=== PATIENT | female | born 1940 | race Caucasian/White ===

== ENCOUNTER 2016-12-26 17:50 | Outpatient (CLI) | payer MEDICARE | END 2016-12-26 17:51 | disposition home or self-care (01) | DX: I82.501 Chronic embolism and thrombosis of unspecified deep veins of right lower extremity (principal); L90.5 Scar conditions and fibrosis of skin ==

== ENCOUNTER 2017-03-07 14:17 | Emergency (ER) | payer MEDICARE ==
[2017-03-07] MEDS ORDERED: ONDANSETRON 4 MG/2 ML VIAL IVP STA (14:44)
[2017-03-07] MEDS ORDERED: HYDROmorphone 1 MG/ML SYRINGE IVP STA (14:44)
[2017-03-07] MEDS ORDERED: SODIUM CHLORIDE 0.9% 1,000 ML IV ONE ×3 (14:44→17:52)
--- NOTE | 2017-03-07 15:09 | ED Physician Documentation ---
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 HEENT: Other Psych: None Musculoskeletal: None Derm: None - Past Surgical History Past Surgical History: Yes General: Cholecystectomy, Colonoscopy - Present Medications Home Medications: Ambulatory Orders Medication Instructions Recorded Confirmed Hydrocodone/Acetaminophen [[place] 1 each PO Q6H PRN #20 tablet 11/20/15 03/07/17 5-325 Tablet] Ondansetron HCl [Zofran] 4 mg PO Q8H PRN 05/29/16 03/07/17 Aspirin [Aspirin EC] 81 mg PO DAILY 06/06/16 03/07/17 Calcium Carbonate 600 mg PO DAILY 06/06/16 03/07/17 Cholecalciferol (Vitamin D3) 1,000 units PO DAILY 06/06/16 03/07/17 [Vitamin D3] Multivitamin [Multiple Vitamins] 1 tab PO DAILY 06/06/16 03/07/17 Warfarin Sodium 4 mg PO DAILY 03/07/17 03/07/17 - Allergies Allergies/Adverse Reactions: Allergies Allergy/AdvReac Type Severity Reaction Status Date / Time No Known Drug Allergies Allergy Verified 06/05/16 04:07 - Social History Does the pt smoke?: No Smoking Status: Never smoker Does the pt drink ETOH?: No Does the pt have substance abuse?: No - Immunizations Immunizations are current?: No Immunizations: TDAP >10years/unknown - POLST Patient has POLST: No POLST Status: Full Code PD ED PE NORMAL - Vitals Vital signs reviewed: Yes - General General: Other (groaning in pain) - Neck Neck: Supple, no meningeal sign - Cardiac Cardiac: RRR - Respiratory Respiratory: No respiratory distress, Clear bilaterally - Abdomen Abdomen: Other (pt wrsitihing and groaning in pain but minimally TTP periumbilical and mid lower abd, no pulsatile mass , no hernia appreciated) - Derm Derm: Normal color - Extremities Extremities: No deformity - Neuro Neuro: Alert and oriented X 3 Results - Vitals Vitals: Vital Signs - 24 hr 03/07/17 03/07/17 03/07/17 14:23 17:15 19:26 Temperature 35.8 C L Heart Rate 99 74 72 Respiratory 22 20 18 Rate Blood Pressure 108/55 L 130/49 L 129/51 L O2 Saturation 99 97 96 Oxygen O2 Source Room air - Labs Labs: Laboratory Tests 03/07/17 03/07/17 03/07/17 15:18 15:18 15:21 WBC 16.4 H RBC 5.13 Hgb 13.5 Hct 41.6 MCV 81.0 MCH 26.3 L MCHC 32.5 RDW 15.1 H Plt Count 398 MPV 7.8 L Neut # 13.3 H Lymph # 1.7 [place] # 1.2 H Eos # 0.1 Baso # 0.1 Absolute Nucleated RBC 0.00 Nucleated RBCs 0.0 Whole Blood INR 3.0 H Sodium 139 Potassium 4.1 Chloride 106 Carbon Dioxide 22 Anion Gap 11.0 BUN 23 H Creatinine 1.0 Estimated GFR (MDRD) 54 L Glucose 123 H Calcium 9.8 Total Bilirubin 0.6 AST 30 ALT 25 Alkaline Phosphatase 98 Total Protein 7.6 Albumin 4.1 Globulin 3.5 Albumin/Globulin Ratio 1.2 Lipase 39 Urine Color Urine Clarity Urine pH Ur Specific [place] Urine Protein Urine Glucose (UA) Urine Ketones Urine Occult Blood Urine Nitrite Urine Bilirubin Urine Urobilinogen Ur Leukocyte Esterase Urine RBC Urine WBC Urine WBC Clumps Ur Squamous Epith Cells Urine Bacteria Ur Microscopic Review Urine Culture Comments 03/07/17 16:00 WBC RBC Hgb Hct MCV MCH MCHC RDW Plt Count MPV Neut # Lymph # [place] # Eos # Baso # Absolute Nucleated RBC Nucleated RBCs Whole Blood INR Sodium Potassium Chloride Carbon Dioxide Anion Gap BUN Creatinine Estimated GFR (MDRD) Glucose Calcium Total Bilirubin AST ALT Alkaline Phosphatase Total Protein Albumin Globulin Albumin/Globulin Ratio Lipase Urine Color YELLOW Urine Clarity HAZY Urine pH 6.0 Ur Specific [place] 1.015 Urine Protein NEGATIVE Urine Glucose (UA) NEGATIVE Urine Ketones NEGATIVE Urine Occult Blood SMALL H Urine Nitrite POSITIVE H Urine Bilirubin NEGATIVE Urine Urobilinogen 0.2 (NORMAL) Ur Leukocyte Esterase MODERATE H Urine RBC 6-10 H Urine WBC >25 H Urine WBC Clumps PRESENT Ur Squamous Epith Cells FEW Squamous Urine Bacteria Moderate H Ur Microscopic Review INDICATED Urine Culture Comments INDICATED PD MEDICAL DECISION MAKING - ED course ED course: given severe pain concern for vascular etiology so got CT angio abd and pelvis - no mesenteric ischemia or dissection but + SBO also has a UTI - gave rocephin will admit - hospitalist rec inpt advised surgeon Dr Whipple as well - he came and saw pt - would like another CT scan with PO con to be done in the ER before admission - Dr Whipple and mid shift ER Dr Vazquez determined pt could stay in ER for the repeat CT while the surgeon went to the OR, Dr Vazquez and Dr Monteiro to dispo pt based on CT results Departure - Departure Disposition: 66 [facility] DC/Xfer Clinical Impression: Small bowel obstruction Urinary tract infection Qualifiers: Urinary tract infection type: acute cystitis Hematuria presence: with hematuria Qualified Code(s): N30.01 - Acute cystitis with hematuria
[2017-03-07] MEDS ORDERED: ONDANSETRON 4 MG/2 ML VIAL ONE (15:22)
[2017-03-07] MEDS ORDERED: HYDROmorphone 1 MG/ML SYRINGE ONE (15:22)
[2017-03-07 16:03] LABS: BASOPHILS # (AUTO) 0.1 10^3/uL (0.0-0.1); BASOPHILS % (AUTO) 0.5 %; EOSINOPHILS # (AUTO) 0.1 10^3/uL (0.0-0.7); EOSINOPHILS % (AUTO) 0.5 %; HCT - HEMATOCRIT 41.6 % (37.0-47.0); HGB - HEMOGLOBIN 13.5 g/dL (12.0-16.0); LYMPHOCYTES # (AUTO) 1.7 10^3/uL (1.5-3.5); LYMPHOCYTES % (AUTO) 10.5 %; MEAN CORPUSCULAR HEMOGLOBIN 26.3 pg (27.0-31.0); MEAN CORPUSCULAR HGB CONC 32.5 g/dL (32.0-36.0); MEAN PLATELET VOLUME 7.8 fL (7.9-10.8); MONOCYTES # (AUTO) 1.2 10^3/uL (0.0-1.0); MONOCYTES % (AUTO) 7.6 %; NEUTROPHILS # (AUTO) 13.3 10^3/uL (1.5-6.6); NEUTROPHILS % (AUTO) 80.9 %; RED BLOOD COUNT 5.13 10^6/uL (4.20-5.40); RED CELL DISTRIBUTION WIDTH 15.1 % (12.0-15.0); UNCORRECTED WHITE BLOOD COUNT 16.4 x10^3/uL; WHITE BLOOD COUNT 16.4 x10^3/uL (4.8-10.8)
[2017-03-07 16:10] LABS: BILIRUBIN,URINE NEGATIVE (NEGATIVE)
[2017-03-07 16:12] LABS: UA w/ MICROSCOPIC CHARGE YES
[2017-03-07 16:15] LABS: UR CULTURE IF IND INDICATED; WBC,URINE >25 /HPF (0-5)
[2017-03-07 16:15] LABS: ALBUMIN/GLOBULIN RATIO 1.2 (1.0-2.2); BILIRUBIN,TOTAL 0.6 mg/dL (0.2-1.0); CALCIUM 9.8 mg/dL (8.5-10.3); POTASSIUM 4.1 mmol/L (3.5-5.0); TOTAL PROTEIN 7.6 g/dL (6.7-8.2)
[2017-03-07] MEDS ORDERED: IOPAMIDOL-300 100 ML VIAL IVP ONE (16:51)
--- NOTE | 2017-03-07 17:43 | CT Report ---
EXAM: CT ANGIOGRAM ABDOMEN AND PELVIS WITH CONTRAST EXAM DATE: 03/07/2017 04:52 PM. CLINICAL HISTORY: Severe abdomen pain out of proportion to exam. COMPARISONS: 06/05/2016. TECHNIQUE: Routine helical CT angiogram imaging was performed through the abdomen and pelvis in the a rterial phase. IV contrast: 100 cc of Isovue-300. Enteric contrast: No. Reconstructions: Coronal, sag ittal, and 3D MIP reconstructions. In accordance with CT protocol optimization, one or more of the following dose reduction techniques w ere utilized for this exam: automated exposure control, adjustment of mA and/or KV based on patient s ize, or use of iterative reconstructive technique. FINDINGS: Vasculature: No aortic aneurysm or dissection. Stable atherosclerotic calcification. No significant s tenosis of the celiac artery, SMA, renal arteries, or iliac arteries noted. Lung Bases: Small hiatal hernia, otherwise unremarkable. Abdominal Solid Organs: The liver, spleen, pancreas, adrenal glands, gallbladder and kidneys are norm al in size and demonstrate no masses or abnormal enhancement. Peritoneal Cavity: Mild diverticulosis. Dilated proximal small bowel, with transition point in the le ft pelvis, best seen image 73 series 10. Decompressed distal small bowel. No free air. No adenopathy identified. Pelvic Organs: Small amount of free fluid. Reproductive organs and bladder are unremarkable. 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 Stable degenerative disk disease at L4-L5 and L5-S1 with anterolisthesis at L5-S1. Other: None. IMPRESSION: 1. No aortic aneurysm or dissection. 2. Small hiatal hernia. 3. Mild diverticulosis without diverticulitis. 4. Mid small bowel obstruction, with transition point in the left mid pelvis. 5. Small amount of free fluid. 6. Chronic lumbar spine abnormalities. [facility] Referring Provider Line: [phone] SITE ID: [id number]
[2017-03-07] MEDS ORDERED: cefTRIAXone 1 GM in SODIUM CHLORIDE 0.9% MINIBAG 100 ML IV STA (17:50)
--- NOTE | 2017-03-07 20:28 | CT Preliminary Report ---
Exam: CT Abdomen/Pelvis W/O IMPRESSION: 1. Borderline mid small bowel dilation; borderline proximal dilation on previous study has resolved. This may represent the upper limit of normal or perhaps regional ileus. Unlikely to represent obstruc tion. 2. Mild diffuse bowel wall thickening in the mid to distal small bowel not present on earlier study, possibly an edematous response to a transient event. 3. Mild diverticulosis and other chronic or incidental findings. [facility] SITE ID: [id number]
--- NOTE | 2017-03-07 20:31 | CT Report ---
EXAM: CT ABDOMEN AND PELVIS EXAM DATE: 03/07/2017 08:05 PM. CLINICAL HISTORY: Abdominal pain resolved do not think she has obstr. COMPARISONS: An earlier study of this same date. TECHNIQUE: Routine helical CT imaging was performed through the abdomen and pelvis. IV contrast: None . Residual contrast present from earlier arteriogram. Enteric contrast: Yes. Reconstructions: Coronal and sagittal. In accordance with CT protocol optimization, one or more of the following dose reduction techniques w ere utilized for this exam: automated exposure control, adjustment of mA and/or KV based on patient s ize, or use of iterative reconstructive technique. FINDINGS: Lung Bases: Unremarkable. Oral contrast in esophagus, possibly due to reflux. Liver: Normal. No masses. Gallbladder/Bile Ducts: Surgically absent. No ductal dilation. Spleen: Normal. Pancreas: Normal. Adrenal Glands: Mild bilateral adrenal thickening unchanged. Kidneys: Unremarkable. No mass, fluid collection, or hydronephrosis. Peritoneal Cavity/Bowel: Continued borderline prominence of mid to distal small bowel loops measuring about 3.0 cm in diameter, with no dilation of more proximal loops. The current study is mild diffuse wall thickening of mid to distal small bowel loops, measuring about 6 mm in thickness. Normal terminal ileum. Mild colonic diverticulosis. Otherwise unremarkable colon. No free fluid, free air, or lymphadenopathy. Surgical clip in right lower quadrant. Appendix not rinku fadumo visualized as a separate structure. Pelvic Organs: Redundant rectum. The bladder and visualized pelvic organs are otherwise within normal limits. Vasculature: No aneurysms or other significant abnormality. Bones: Degenerative changes. Grade 2 degenerative anterolisthesis of L5. Other: None. IMPRESSION: 1. Borderline mid small bowel dilation; borderline proximal dilation on previous study has resolved. This may represent the upper limit of normal or perhaps regional ileus. Unlikely to represent obstruc tion. 2. Mild diffuse bowel wall thickening in the mid to distal small bowel not present on earlier study, possibly an edematous response to a transient event. 3. Mild diverticulosis and other chronic or incidental findings. [facility] Referring Provider Line: [phone] SITE ID: [id number]
--- NOTE | 2017-03-07 21:08 | ED Physician Documentation ---
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 HEENT: Other Psych: None Musculoskeletal: None Derm: None - Past Surgical History Past Surgical History: Yes General: Cholecystectomy, Colonoscopy - Present Medications Home Medications: Ambulatory Orders Medication Instructions Recorded Confirmed Hydrocodone/Acetaminophen [[place] 1 each PO Q6H PRN #20 tablet 11/20/15 03/07/17 5-325 Tablet] Ondansetron HCl [Zofran] 4 mg PO Q8H PRN 05/29/16 03/07/17 Aspirin [Aspirin EC] 81 mg PO DAILY 06/06/16 03/07/17 Calcium Carbonate 600 mg PO DAILY 06/06/16 03/07/17 Cholecalciferol (Vitamin D3) 1,000 units PO DAILY 06/06/16 03/07/17 [Vitamin D3] Multivitamin [Multiple Vitamins] 1 tab PO DAILY 06/06/16 03/07/17 Cephalexin [Keflex] 500 mg PO Q6H #28 capsule 03/07/17 Warfarin Sodium 4 mg PO DAILY 03/07/17 03/07/17 - Allergies Allergies/Adverse Reactions: Allergies Allergy/AdvReac Type Severity Reaction Status Date / Time No Known Drug Allergies Allergy Verified 06/05/16 04:07 - Social History Does the pt smoke?: No Smoking Status: Never smoker Does the pt drink ETOH?: No Does the pt have substance abuse?: No - Immunizations Immunizations are current?: No Immunizations: TDAP >10years/unknown - POLST Patient has POLST: No POLST Status: Full Code Results - Vitals Vitals: Vital Signs - 24 hr 03/07/17 03/07/17 03/07/17 14:23 17:15 19:26 Temperature 35.8 C L Heart Rate 99 74 72 Respiratory 22 20 18 Rate Blood Pressure 108/55 L 130/49 L 129/51 L O2 Saturation 99 97 96 03/07/17 21:20 Temperature 36.5 C Heart Rate 89 Respiratory 20 Rate Blood Pressure 145/77 H O2 Saturation 98 Oxygen O2 Source Room air - Labs Labs: Laboratory Tests 03/07/17 03/07/17 03/07/17 15:18 15:18 15:21 WBC 16.4 H RBC 5.13 Hgb 13.5 Hct 41.6 MCV 81.0 MCH 26.3 L MCHC 32.5 RDW 15.1 H Plt Count 398 MPV 7.8 L Neut # 13.3 H Lymph # 1.7 [place] # 1.2 H Eos # 0.1 Baso # 0.1 Absolute Nucleated RBC 0.00 Nucleated RBCs 0.0 Whole Blood INR 3.0 H Sodium 139 Potassium 4.1 Chloride 106 Carbon Dioxide 22 Anion Gap 11.0 BUN 23 H Creatinine 1.0 Estimated GFR (MDRD) 54 L Glucose 123 H Calcium 9.8 Total Bilirubin 0.6 AST 30 ALT 25 Alkaline Phosphatase 98 Total Protein 7.6 Albumin 4.1 Globulin 3.5 Albumin/Globulin Ratio 1.2 Lipase 39 Urine Color Urine Clarity Urine pH Ur Specific [place] Urine Protein Urine Glucose (UA) Urine Ketones Urine Occult Blood Urine Nitrite Urine Bilirubin Urine Urobilinogen Ur Leukocyte Esterase Urine RBC Urine WBC Urine WBC Clumps Ur Squamous Epith Cells Urine Bacteria Ur Microscopic Review Urine Culture Comments 03/07/17 16:00 WBC RBC Hgb Hct MCV MCH MCHC RDW Plt Count MPV Neut # Lymph # [place] # Eos # Baso # Absolute Nucleated RBC Nucleated RBCs Whole Blood INR Sodium Potassium Chloride Carbon Dioxide Anion Gap BUN Creatinine Estimated GFR (MDRD) Glucose Calcium Total Bilirubin AST ALT Alkaline Phosphatase Total Protein Albumin Globulin Albumin/Globulin Ratio Lipase Urine Color YELLOW Urine Clarity HAZY Urine pH 6.0 Ur Specific [place] 1.015 Urine Protein NEGATIVE Urine Glucose (UA) NEGATIVE Urine Ketones NEGATIVE Urine Occult Blood SMALL H Urine Nitrite POSITIVE H Urine Bilirubin NEGATIVE Urine Urobilinogen 0.2 (NORMAL) Ur Leukocyte Esterase MODERATE H Urine RBC 6-10 H Urine WBC >25 H Urine WBC Clumps PRESENT Ur Squamous Epith Cells FEW Squamous Urine Bacteria Moderate H Ur Microscopic Review INDICATED Urine Culture Comments INDICATED - Rads (name of study) abd/pelvis CT Radiology: Prelim report reviewed, EMP read contemporaneously, See rad report ( Borderline mid small bowel dilation; borderline proximal dilation on previous study has resolved. This may represent the upper limit of normal or perhaps regional ileus. Unlikely to represent obstruction. . Mild diffuse bowel wall thickening in the mid to distal small bowel not present on earlier study, possibly an edematous response to a transient event. Mild diverticulosis and other chronic or incidental findings. ) PD MEDICAL DECISION MAKING - ED course Complexity details: reviewed old records, reviewed results, re-evaluated patient , considered differential, d/w patient, d/w technical assistance consultant ED course: Symptoms resolved in the ED. No recurrent pain. Tolerating PO without diff. Prior CT findings resolved. Dr. Whipple re-evaluated and feels that the pt can go home. Patient would like to go home at this time as well. She is very well- appearing, nontoxic. Abdomen is soft, nontender nondistended on serial exam. No recurrent pain. Patient counseled regarding signs and symptoms for which I believe and urgent re-evaluation would be necessary. Patient with good understanding of and agreement to plan and is comfortable going home at this time This document was made in part using voice recognition software. While efforts are made to proofread this document, sound alike and grammatical errors may occur. Departure - Departure Disposition: 01 Home, Self Care Clinical Impression: Urinary tract infection Qualifiers: Urinary tract infection type: acute cystitis Hematuria presence: with hematuria Qualified Code(s): N30.01 - Acute cystitis with hematuria Abdominal pain Qualifiers: Abdominal location: generalized Qualified Code(s): R10.84 - Generalized abdominal pain Condition: Good Instructions: ED UTI Cystitis Female, ED Abdominal Pain Unkn Cause Follow-Up: Abdiaziz Canchola DO [Primary Care Provider] - Within 3 Days Prescriptions: Cephalexin [Keflex] 500 mg PO Q6H #28 capsule Comments: Take all antibiotics until gone. Return if you worsen. Discharge Date/Time: 03/07/17 21:42
[2017-03-07 21:22] VITALS: BP 145/77
--- NOTE | 2017-03-08 03:55 | HISTORY & PHYSICAL EXAMINATION ---
DATE OF ADMISSION: 03/07/2017 I am called in consultation by Dr. Keesha Angela to evaluate this very pleasant 76-year-old female fo r a small bowel obstruction. HISTORY OF PRESENT ILLNESS: The patient had the abrupt onset of abdominal pain today. This is very lo w in her abdomen and her previous bout of small bowel obstruction caused pain in her epigastrium. Thi s was different in its location and different in its severity. She stated it was 100 times worse than her previous pain. She has been passing gas and bowel movements less than 24 hours prior to her admi ssion to the emergency room. Notably, the patient has had a history of vaginal cancer treated with ch emoradiation therapy, as well as lymph node resection over 10 years ago. Additionally, she had a chol ecystectomy. There was no nausea, vomiting, or diarrhea with this attack. There was no fever. There a re no urinary symptoms. ALLERGIES: NONE. MEDICATIONS 1. [place] 10/325 tablets, 1 tablet every 6 hours as needed for pain. 2. Zofran 4 mg every 8 hours as needed. 3. Aspirin 81 mg daily. 4. Calcium carbonate 600 mg daily. 5. Vitamin D3 1000 units p.o. daily. 6. Multivitamin 1 tab p.o. daily. 7. Warfarin sodium 4 mg p.o. daily. PAST MEDICAL AND SURGICAL HISTORY: Includes cholecystectomy, colonoscopy, history of vaginal cancer, dyslipidemia, deep venous thrombosis. FAMILY HISTORY: Noncontributory to this disease process. SOCIAL HISTORY 1. Tobacco: None. 2. Alcohol: None. 3. Recreational drugs: None. REVIEW OF SYSTEMS CONSTITUTIONAL: She denies fever, chills, or unexpected weight loss. HEENT: She denies any changes in hearing or vision. THROAT: She denies any difficulty swallowing or speaking. CARDIAC: She denies chest pain or pressure. RESPIRATIONS: She denies shortness of breath or cough. GASTROINTESTINAL: See above. GENITOURINARY: She denies dysuria. NEUROLOGICAL: She denies generalized weakness or focal deficit. ENDOCRINE: She denies easy bleeding or bruising other than the fact that she has Coumadin. Normally s he does not have easy bleeding or bruising. She is not immunocompromised. PHYSICAL EXAMINATION GENERAL: This is a 76-year-old female who is evaluated in room 9 at [facility] Department. She, when I examined her, did not complain of abdominal pain. She states she feels perfectly normal. Her mood and affect are appropriate. She is alert and oriented x3. She did receive a small bit of Dilaudid between the time that Dr. Angela saw her and I saw her. VITALS: Please refer to nurse's note. HEENT: She is normocephalic, atraumatic. Her sclerae are noninjected, nonicteric. Her mucous membrane s are pink and moist. NECK: Supple without mass or bruit. HEART: Regular rate and rhythm without rub, murmur, gallop. LUNG: Clear to auscultation bilaterally. ABDOMEN: Soft, nontender, nondistended without any significant tympany. She has normalized bowel soun ds. She has no peritoneal findings. She has no hernia that I can appreciate. SKIN: Normal. GAIT: Was not evaluated. LABORATORY: Abnormalities on her labs include a white count of 16.4, an INR of 3.0, RDW of 15.1, neut rophils 13.3, monos 1.2. Abnormalities on her CMP include glucose of 123. Her urinalysis is consisten t with a urinary tract infection with positive nitrites, positive leukocyte esterase, moderate bacter ia. IMAGING: The initial CT scan official reading was read by Dr. Patino and the impression was no aortic aneurysm or dissection, small hiatal hernia, mild diverticulosis without diverticulitis. There was m ention made of a dilated proximal small bowel with transition point in the left pelvis, both seen on image 73 series 10. Decompressed distal small bowel. No free air, no adenopathy identified. However, when I read this film, this did not seem that it was consistent with my physical examination and it d id not appear that there was a reason for this transition point on the film. As such, I ordered a rep eat CT scan with oral contrast to look at this area and the repeat reading by Dr. Young's preliminary showed borderline mid small bowel dilation, borderline proximal dilation on previous study has resol vick. This may represent the upper limit of normal or perhaps regional ileus, unlikely to represent ob struction. There is some mild diffuse bowel wall thickening in the mid to distal small bowel not pres ent on earlier study, probably an edematous response to a transient effect. There is mild diverticulo sis and other chronic and incidental findings. ASSESSMENT: The patient with transient abdominal pain that is nonoperative. PLAN: I believe she has a urinary tract infection and she will receive treatment for this. She does n ot need to be admitted to the hospital for surgical care. There is no current surgical issue. Should she have a repeat episode, I think a cautious approach with studies and watchful waiting would be in order. I have discussed all of this with her and she is amenable to this approach. JOB #: [id number] EXT JOB #:[id number]
== END 2017-03-07 21:42 | disposition home or self-care (01) ==
LOC: ED 14:17
DX: K56.60 Unspecified intestinal obstruction (principal); N30.01 Acute cystitis with hematuria; Z85.44 Personal history of malignant neoplasm of other female genital organs; Z92.3 Personal history of irradiation; Z92.21 Personal history of antineoplastic chemotherapy; Z86.718 Personal history of other venous thrombosis and embolism; Z79.01 Long term (current) use of anticoagulants; Z79.82 Long term (current) use of aspirin
CPT/HCPCS: 36415; 74174; 74176; 80053; 81001; 83690; 85025; 85610; 87077; 87086; 87181; 96374; 96375; 99284; J1170; Q9967; 81003

== ENCOUNTER 2017-04-04 08:00 | Outpatient (CLI) | payer MEDICARE ==
[2017-04-04 19:31] LABS: CALCIUM 9.1 mg/dL (8.5-10.3); CREATININE 1.1 mg/dL (0.4-1.0); POTASSIUM 3.9 mmol/L (3.5-5.0)
== END 2017-04-04 08:01 | disposition home or self-care (01) ==
LOC: LAB.WCP 08:00
PROVIDERS: ATTEND Family Medicine
DX: R60.0 Localized edema (principal)
CPT/HCPCS: 36415; 80048

== ENCOUNTER 2017-05-29 14:47 | Outpatient (CLI) | payer MEDICARE ==
--- NOTE | 2017-05-29 19:10 | Ultrasound Report ---
RIGHT LEG VENOUS DUPLEX: 05/29/2017 CLINICAL INDICATION: Chronic thrombus, post-radiation changes. TECHNIQUE: Real-time sonographic vascular imaging was performed by the rate analyst through the right lower extremity utilizing both color flow and Doppler spectral analysis. Multiple credit and collections representative the medical center images were saved for review. FINDINGS: A right lower extremity venous sonogram is performed revealing the common femoral, superfi cial femoral, profunda femoris, and popliteal veins to be adequately visualized without intraluminal defects. There is normal venous compression, augmentation, phasicity, and spontaneity of venous flow. In the calf, the visualized more cephalad portions of posterior tibial and peroneal veins are gross ly compressible, without filling defects. IMPRESSION: NO EVIDENCE OF DEEP VENOUS THROMBOSIS. THE RIGHT COMMON FEMORAL, SUPERFICIAL FEMORAL AN D DEEP FEMORAL VEIN ARE NOW COMPRESSIBLE. JOB #: [id number] EXT JOB #:[id number]
== END 2017-05-29 14:48 | disposition home or self-care (01) ==
LOC: DI 14:47
PROVIDERS: ATTEND Family Medicine
DX: I82.509 Chronic embolism and thrombosis of unspecified deep veins of unspecified lower extremity (principal)

== ENCOUNTER 2017-06-19 15:58 | Outpatient (CLI) | payer MEDICARE | END 2017-06-19 15:59 | disposition short-term general hospital (02) | LOC: EMS 15:58 | PROVIDERS: ATTEND Surgery | DX: R53.1 Weakness (principal); R29.6 Repeated falls; Z91.81 History of falling | CPT/HCPCS: A0425; A0427; A0888 ==

== ENCOUNTER 2017-06-21 08:00 | Outpatient (CLI) | payer MEDICARE | END 2017-06-21 08:01 | disposition critical access hospital (66) | LOC: EMS 08:00 | PROVIDERS: ATTEND Surgery | DX: R69 Illness, unspecified (principal) | CPT/HCPCS: A0425; A0427 ==

== ENCOUNTER 2017-06-21 08:13 | Inpatient (IN) | payer MEDICARE ==
[2017-06-21] MEDS ORDERED: ACETAMINOPHEN 1,000 MG/100 ML 100 ML IV STA (08:37)
[2017-06-21] MEDS ORDERED: SODIUM CHLORIDE 0.9% 2,000 ML IV ONE (08:38)
--- NOTE | 2017-06-21 08:49 | ED Physician Documentation ---
History of Present Illness - Stated complaint Stated Complaint: WEAKNESS - Chief complaint Chief Complaint: General - History obtained from History obtained from: Patient, Family (), EMS - Additonal information Additional information: The patient is a 76-year-old female who arrives via ambulance with weakness that has gotten progressively worse for the past 4 days. This morning she was unable to sit up from the bed, and her heart rate was noted to be very fast. She denies any pain, headache, nausea or vomiting. She has had diarrhea for several days. Her reports she has had problems with diarrhea for the past 2 years since her cholecystectomy. She has been seen in the emergency department at [facility] 3 times in the past week after falling. Each emergency department visit, 4 days ago, 3 days ago, and 2 days ago, revealed no significant injury. She was diagnosed with pneumonia and started on Zithromax after IV antibiotic was administered 2 days ago. Her picked up the prescription yesterday. Her past medical history is significant for DVT 2 years ago, with recurrence 2 months ago, after which warfarin was instituted. It is unclear at this time whether she has past history of atrial fibrillation. 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 Stepdaughter came in later, and advises that the patient was able to go shopping with her last Sunday, 5 days ago, but has been deteriorating, with progressive generalized weakness and chills since that time. Her incontinence of stool is new over the past several days. Review of Systems Unable to obtain: Confused Constitutional: reports: Fever Cardiac: denies: Chest pain / pressure Respiratory: reports: Dyspnea, Cough GI: reports: Diarrhea. denies: Abdominal Pain, Nausea, Vomiting : denies: Dysuria Skin: denies: Rash Musculoskeletal: denies: Back pain Neurologic: reports: Generalized weakness, Confused. denies: Headache PD PAST MEDICAL HISTORY - Past Medical History Cardiovascular: None, High cholesterol, Deep vein thrombosis Respiratory: None Neuro: None Endocrine/Autoimmune: None GI: Other (IBS) LIEUTENANT/DEPUTY: Other (Vaginal CA) : None HEENT: Other Psych: None Musculoskeletal: None Derm: None - Past Surgical History Past Surgical History: Yes General: Cholecystectomy, Colonoscopy - Present Medications Home Medications: Ambulatory Orders Medication Instructions Recorded Confirmed Calcium Carbonate [Tums (Calcium 500 mg PO DAILY 06/21/17 06/21/17 Carbonate 500mg)] Furosemide [Lasix] 40 mg PO DAILY 06/21/17 06/21/17 Multivitamin [Theragran] 1 tab PO DAILY 06/21/17 06/21/17 Potassium Chloride 20 meq PO DAILY 06/21/17 06/21/17 Warfarin [Coumadin] 4 mg PO SUMOTUTHSA@0900 06/21/17 06/21/17 Warfarin [Coumadin] 6 mg PO WEFR@0900 06/21/17 06/21/17 - Allergies Allergies/Adverse Reactions: Allergies Allergy/AdvReac Type Severity Reaction Status Date / Time No Known Drug Allergies Allergy Verified 06/21/17 08:19 - Social History Does the pt smoke?: No Smoking Status: Never smoker Does the pt drink ETOH?: No Does the pt have substance abuse?: No - Immunizations Immunizations are current?: No Immunizations: TDAP >10years/unknown - POLST Patient has POLST: No POLST Status: Full Code PD ED PE NORMAL - Vitals Vital signs reviewed: Yes (Tachycardic and tachypneic.) - General General: Other (Appears fatigued, with tachypnea. Responds to questions, but responses are difficult to understand, except for yes and no responses.) - HEENT HEENT: Atraumatic, EOMI, Pharynx benign, Other (Dry buccal mucosa.) - Neck Neck: Supple, no meningeal sign, No adenopathy, No JVD - Cardiac Cardiac: No murmur, Other (Rapid rate, irregularly irregular rhythm.) - Respiratory Respiratory: Clear bilaterally - Abdomen Abdomen: Soft, Non tender - Back Back: No CVA TTP, No spinal TTP - Derm Derm: No rash - Extremities Extremities: No tenderness to palpate, No calf tenderness / cord, Other (1-2+ edema of the right lower extremity, no edema in the left lower extremity. ( states this is unchanged from her chronic condition since the DVT.)) - Neuro Neuro: Other (Somnolent, but responds to questions. Moves all extremities without evidence of motor deficit.) Results - Vitals Vitals: Vital Signs - 24 hr 06/21/17 06/21/17 06/21/17 08:13 09:11 10:28 Temperature 37.1 C Heart Rate 161 H 114 H 104 H Respiratory 39 H 32 H 22 Rate Blood Pressure 101/64 81/50 L 102/46 L O2 Saturation 88 L 94 93 06/21/17 06/21/17 06/21/17 10:50 11:10 11:53 Temperature 36.5 C Heart Rate 101 H 99 97 Respiratory 25 H 22 27 H Rate Blood Pressure 126/43 L 111/50 L 119/100 H O2 Saturation 94 94 95 Oxygen O2 Source Nasal cannula Oxygen Flow Rate 2 - EKG (time done) 08:19 Rate: Rate (enter#) (160) Rhythm: Atrial fibrillation [place]: Normal Ischemia: Non specific changes (Most likely rate related.) Compare to prior EKG: Old EKG unavailable Computer interpretation: Agree with computer 11:02 Rate: Rate (enter#) (99) Rhythm: NSR [place]: Normal Intervals: Normal MT QRS: Normal Ischemia: Other (T wave flattening in inferior leads III and aVF.) Compare to prior EKG: Changed from prior EKG (No longer in A-fib.) Computer interpretation: Agree with computer - Labs Labs: Laboratory Tests 06/21/17 06/21/17 06/21/17 09:20 09:20 09:20 WBC 2.1 L RBC 3.83 L Hgb 10.2 L Hct 30.2 L MCV 78.9 L MCH 26.5 L MCHC 33.6 RDW 15.0 Plt Count 95 L MPV 8.7 Neut # 1.4 L Lymph # 0.7 L [place] # 0.1 Eos # 0.0 Baso # 0.0 Absolute Nucleated RBC 0.00 Nucleated RBC % 0.1 Manual Slide Review Indicated Platelet Morphology RARE GIANT PLATELETS RBC Morph Micro Appear 2+ ANISOCYTOSIS PT 21.2 H INR 1.9 H Sodium 130 L Potassium 2.8 L Chloride 103 Carbon Dioxide 17 L Anion Gap 10.0 BUN 39 H Creatinine 3.0 H Estimated GFR (MDRD) 15 L Glucose 206 H Lactic Acid Calcium 7.2 L Total Bilirubin 1.3 H AST 326 H ALT 147 H Alkaline Phosphatase 69 Troponin I Total Protein 4.8 L Albumin 2.2 L Globulin 2.6 Albumin/Globulin Ratio 0.8 L Lipase 70 H Urine Color Urine Clarity Urine pH Ur Specific [place] Urine Protein Urine Glucose (UA) Urine Ketones Urine Occult Blood Urine Nitrite Urine Bilirubin Urine Urobilinogen Ur Leukocyte Esterase Urine RBC Urine WBC Ur Squamous Epith Cells Amorphous Sediment Urine Bacteria Ur Microscopic Review Urine Culture Comments Influenza A (Rapid) Influenza B (Rapid) Influenza Types A,B Ag Blood Type Recheck 06/21/17 06/21/17 06/21/17 09:20 09:20 09:20 WBC RBC Hgb Hct MCV MCH MCHC RDW Plt Count MPV Neut # Lymph # [place] # Eos # Baso # Absolute Nucleated RBC Nucleated RBC % Manual Slide Review Platelet Morphology RBC Morph Micro Appear PT INR Sodium Potassium Chloride Carbon Dioxide Anion Gap BUN Creatinine Estimated GFR (MDRD) Glucose Lactic Acid 1.4 Calcium Total Bilirubin AST ALT Alkaline Phosphatase Troponin I 0.21 Total Protein Albumin Globulin Albumin/Globulin Ratio Lipase Urine Color Urine Clarity Urine pH Ur Specific [place] Urine Protein Urine Glucose (UA) Urine Ketones Urine Occult Blood Urine Nitrite Urine Bilirubin Urine Urobilinogen Ur Leukocyte Esterase Urine RBC Urine WBC Ur Squamous Epith Cells Amorphous Sediment Urine Bacteria Ur Microscopic Review Urine Culture Comments Influenza A (Rapid) Influenza B (Rapid) Influenza Types A,B Ag Blood Type Recheck A POSITIVE 06/21/17 06/21/17 09:40 11:30 WBC RBC Hgb Hct MCV MCH MCHC RDW Plt Count MPV Neut # Lymph # [place] # Eos # Baso # Absolute Nucleated RBC Nucleated RBC % Manual Slide Review Platelet Morphology RBC Morph Micro Appear PT INR Sodium Potassium Chloride Carbon Dioxide Anion Gap BUN Creatinine Estimated GFR (MDRD) Glucose Lactic Acid Calcium Total Bilirubin AST ALT Alkaline Phosphatase Troponin I Total Protein Albumin Globulin Albumin/Globulin Ratio Lipase Urine Color YELLOW Urine Clarity CLOUDY Urine pH 6.0 Ur Specific [place] 1.010 Urine Protein 30 H Urine Glucose (UA) NEGATIVE Urine Ketones NEGATIVE Urine Occult Blood LARGE H Urine Nitrite NEGATIVE Urine Bilirubin NEGATIVE Urine Urobilinogen 0.2 (NORMAL) Ur Leukocyte Esterase NEGATIVE Urine RBC 6-10 H Urine WBC 0-3 Ur Squamous Epith Cells FEW Squamous Amorphous Sediment Marked Urine Bacteria Few Ur Microscopic Review INDICATED Urine Culture Comments NOT INDICATED Influenza A (Rapid) Negative Influenza B (Rapid) Negative Influenza Types A,B Ag - Blood Type Recheck - Rads (name of study) Chest 1 view Radiology: Prelim report reviewed, EMP read contemporaneously, See rad report ( No focal consolidation. Diffuse interstitial prominence may be from mild edema or infection.) PD MEDICAL DECISION MAKING - ED course Complexity details: reviewed old records, reviewed results, re-evaluated patient , considered differential, d/w patient, d/w family, d/w building consultant ED course: The patient's presentation is significant for pneumonia with sepsis. She has pancytopenia with a white blood cell count 2.1, hemoglobin 10.2, hematocrit 30.2 , and platelet count 95,000. Chest x-ray reveals interstitial prominence, without focal consolidation. I doubt acute cardiac ischemia, with no acute findings on EKG, and troponin within the normal range of 0.20. Chemistry panel is significant for hypokalemia with a potassium of 2.8. She has acute renal insufficiency with a BUN 39, and creatinine 3.0. Less than three months ago creatinine was nearly normal at 1.1. Clinically she appears very dehydrated, and there is large amount of sediment in her urine. Treatment in the emergency department included administration of normal saline 3 L IV, ceftriaxone 1 g IV after blood cultures were drawn, acetaminophen 1 g IV , and supplemental potassium, 10 mEq IV and 25 mEq orally. I discussed her condition with Dr. Espana, the hospitalist, who admitted her to the intensive care unit for further evaluation and treatment. Departure - Departure Disposition: [facility] DC/Xfer Clinical Impression: Hypokalemia, Dehydration, Acute renal insufficiency Sepsis Qualifiers: Sepsis type: sepsis due to unspecified organism Qualified Code(s): A41.9 - Sepsis, unspecified organism Pneumonia Qualifiers: Pneumonia type: due to unspecified organism Laterality: bilateral Lung location : unspecified part of lung Qualified Code(s): J18.9 - Pneumonia, unspecified organism Condition: Serious Discharge Date/Time: 06/21/17 13:04
[2017-06-21] MEDS ORDERED: ACETAMINOPHEN 1,000 MG/100 ML 100 ML IV ONE (08:57)
--- NOTE | 2017-06-21 09:06 | XRAY Report ---
EXAM: CHEST RADIOGRAPHY EXAM DATE: 06/21/2017 08:57 AM. CLINICAL HISTORY: Fever, dyspnea. COMPARISON: None. TECHNIQUE: 1 view. FINDINGS: Lungs/Pleura: No focal consolidation evident. No pleural effusion. No pneumothorax. Diffuse interstit ial prominence. Mediastinum: Atherosclerotic aortic calcifications. Other: None. IMPRESSION: 1. No focal consolidation. 2. Diffuse interstitial prominence may be from mild edema or infection. [facility] Referring Provider Line: [phone] SITE ID: [id number]
[2017-06-21 09:38] LABS: BASOPHILS % (AUTO) 0.1 %; HCT - HEMATOCRIT 30.2 % (37.0-47.0); HGB - HEMOGLOBIN 10.2 g/dL (12.0-16.0); LYMPHOCYTES # (AUTO) 0.7 10^3/uL (1.5-3.5); LYMPHOCYTES % (AUTO) 33.6 %; MEAN CORPUSCULAR HEMOGLOBIN 26.5 pg (27.0-31.0); MEAN CORPUSCULAR HGB CONC 33.6 g/dL (32.0-36.0); MEAN CORPUSCULAR VOLUME 78.9 fL (81.0-99.0); MEAN PLATELET VOLUME 8.7 fL (7.9-10.8); MONOCYTES # (AUTO) 0.1 10^3/uL (0.0-1.0); MONOCYTES % (AUTO) 2.6 %; NEUTROPHILS # (AUTO) 1.4 10^3/uL (1.5-6.6); NEUTROPHILS % (AUTO) 63.7 %; NUCLEATED RED BLOOD CELLS AUTO 0.1 /100WBC; RED BLOOD COUNT 3.83 10^6/uL (4.20-5.40); UNCORRECTED WHITE BLOOD COUNT 2.1 x10^3/uL; WHITE BLOOD COUNT 2.1 x10^3/uL (4.8-10.8)
[2017-06-21 09:48] LABS: BILIRUBIN,URINE NEGATIVE (NEGATIVE)
[2017-06-21 09:50] LABS: INR 1.9 (0.8-1.2); PT - PROTHROMBIN TIME 21.2 secs (9.9-12.6)
[2017-06-21 09:51] LABS: ALBUMIN/GLOBULIN RATIO 0.8 (1.0-2.2); BILIRUBIN,TOTAL 1.3 mg/dL (0.2-1.0); CALCIUM 7.2 mg/dL (8.5-10.3); POTASSIUM 2.8 mmol/L (3.5-5.0); TOTAL PROTEIN 4.8 g/dL (6.7-8.2)
[2017-06-21 09:52] LABS: UA w/ MICROSCOPIC CHARGE YES
[2017-06-21 10:02] LABS: PLATELET MORPHOLOGY RARE GIANT PLATELETS (NORMAL)
[2017-06-21] MEDS ORDERED: SODIUM CHLORIDE 0.9% 1,000 ML IV ONE ×2 (10:03→10:49)
[2017-06-21] MEDS ORDERED: cefTRIAXone 1 GM in SODIUM CHLORIDE 0.9% MINIBAG 100 ML IV STA (10:04)
[2017-06-21] MEDS ORDERED: POTASSIUM CHLOR 10 MEQ/100 ML 10 MEQ/100 ML BAG IV ONE ×2 (10:06→10:26)
[2017-06-21] MEDS ORDERED: POTASSIUM BICARB 25 MEQ TABLET PO STA (10:06)
[2017-06-21] MEDS ORDERED: cefTRIAXone 1 GM VIAL ONE ×2 (10:09→10:15)
[2017-06-21 10:23] LABS: UR CULTURE IF IND NOT INDICATED; WBC,URINE 0-3 /HPF (0-5)
[2017-06-21] MEDS ORDERED: POTASSIUM BICARB 25 MEQ TABLET PO ONE (11:50)
[2017-06-21] MEDS ORDERED: PROCHLORPERAZINE 10 MG/2 ML VIAL IVP PRN (12:06)
[2017-06-21] MEDS ORDERED: ACETAMINOPHEN 325 MG TABLET PO PRN (12:06)
[2017-06-21] MEDS ORDERED: SODIUM CHLORIDE 0.9% 1,000 ML IV SCH (13:00)
[2017-06-21] MEDS: SODIUM CHLORIDE FLUSH 0.9% 10 ML SYRINGE IVP SCH ×2 (14:05→20:23)
[2017-06-21] MEDS: POTASSIUM CHLORIDE 20 MEQ TABLET PO SCH ×2 (17:26→19:11)
[2017-06-21] MEDS ORDERED: MIN OIL/DIMETHICON/COCONUT OIL 92 GM TUBE TOP ONE (18:23)
--- NOTE | 2017-06-21 18:46 | ED Physician Documentation ---
ED Addendum - Addendum Addendum: 06/21/17 18:45 It should be noted that the patient initially presented in atrial fibrillation with a rapid ventricular response. During administration of her second liter of normal saline her rhythm converted to normal sinus.
[2017-06-21 20:15] LABS: MAGNESIUM 1.5 mg/dL (1.7-2.8); PHOSPHORUS 3.1 mg/dL (2.5-4.6); POTASSIUM 3.6 mmol/L (3.5-5.0)
[2017-06-21] MEDS: FAMOTIDINE 20 MG/50 ML 50 ML IV SCH (20:23)
[2017-06-21] MEDS ORDERED: LEVALBUTEROL 1.25 MG/0.5 ML NEB INH ONE (21:35)
[2017-06-21] MEDS ORDERED: SODIUM CHLORIDE INHALATION 3 ML NEB ONE (21:38)
[2017-06-21] MEDS ORDERED: LEVALBUTEROL 1.25 MG/0.5 ML NEB INH PRN (21:46)
[2017-06-21] MEDS ORDERED: SODIUM CHLORIDE INHALATION 3 ML NEB INH PRN (21:46)
[2017-06-21] MEDS ORDERED: MAGNESIUM SULFATE 2 GRAM 2 GM/50 ML BAG IV ONE (21:57)
[2017-06-21] MEDS ORDERED: DIGOXIN 500 MCG/2 ML AMP IVP SCH (22:00)
--- NOTE | 2017-06-21 22:27 | XRAY Preliminary Report ---
Exam: XR CHEST 1 VIEW IMPRESSION: Normal single view chest. [facility] SITE ID: [id number]
--- NOTE | 2017-06-21 22:29 | XRAY Report ---
EXAM: CHEST RADIOGRAPHY EXAM DATE: 06/21/2017 10:17 PM. CLINICAL HISTORY: Respiratory distress. COMPARISON: Today at [id number]. TECHNIQUE: 1 view. FINDINGS: Lungs/Pleura: No focal opacities evident. No pleural effusion. No pneumothorax. Mediastinum: Within exam limitations, the cardiomediastinal contour is normal. Other: No bony abnormality identified. IMPRESSION: Normal single view chest. [facility] Referring Provider Line: [phone] SITE ID: [id number]
--- NOTE | 2017-06-21 22:41 | PROVIDER PROGRESS NOTE ---
Subjective - Prog Note Date Prog Note Date: 06/21/17 Prog Note Time: 22:30 - Subjective Pt reports feeling: Worse Subjective: Received nursing call during the resource protection specialist hours reporting worsening in pt's condition. Patient developed respiratory distress/failure with RR >30, wheezes, crackles, increased work of breathing Objective - Vital Signs/Intake & Output Vital Signs: Vital Signs Temp Pulse Pulse Resp BP Pulse Ox 06/21/17 22:34 100 27 H 06/21/17 22:00 104 H 29 H 140/63 H 99 06/21/17 21:50 101 H 06/21/17 21:00 109 H 29 H 133/64 H 98 06/21/17 20:00 36.8 C 91 26 H 126/53 L 98 06/21/17 19:07 105 H 28 H 145/55 H 96 Intake & Output: Intake & Output 06/18/17 06/19/17 06/20/17 06/21/17 23:59 23:59 23:59 23:59 Intake Total 1966.25 Output Total 1340 Balance 626.25 - Objective General Appearance: positive: Severe distress, Anxious ENT: positive: Dry mucous membranes Respiratory: positive: Wheezes, Other (increased WOB, crackles, wheezes) Cardiovascular: positive: Tachycardia Abdomen: positive: Non-tender Skin: positive: Diaphoresis, Pallor, Other (decreased turgor) Extremities: positive: Other (right leg edema) Neurologic/Psychiatric: positive: Oriented x3 - Lab Results Fish Bones: 06/21/17 09:20 06/21/17 19:23 Other Labs: Lab Results x24hrs 06/21/17 06/21/17 06/21/17 Range/Units 22:20 19:23 12:35 Potassium 3.6 (3.5-5.0) mmol/L Lactic Acid 1.4 (0.5-2.2) mmol/L Phosphorus 3.1 (2.5-4.6) mg/dL Magnesium 1.5 L (1.7-2.8) mg/dL Troponin I (<0.49) ng/mL Blood Type A POSITIVE Antibody Screen NEGATIVE 06/21/17 Range/Units 12:35 Potassium (3.5-5.0) mmol/L Lactic Acid (0.5-2.2) mmol/L Phosphorus (2.5-4.6) mg/dL Magnesium (1.7-2.8) mg/dL Troponin I 0.29 (<0.49) ng/mL Blood Type Antibody Screen - Diagnostic Imaging Diagnostic Imaging Results: positive: Prelim report reviewed Assessment/Plan - Problem List (1) Respiratory failure Impression: Acute resp failure secondary to pulmonary edema; developed on aggressive fluid resuscitation in the setting of sepsis. PLAN: CPAP, hold IVF, to avoid diast dysfx and Afib with RVR loaded with digoxin , checked CXR, VBG, repeat lactic acid to assess for muscle fatigue/ might be an indication to consider intubation. Qualifiers: Chronicity: acute Respiratory failure complication: unspecified whether with hypoxia or hypercapnia Qualified Code(s): J96.00 - Acute respiratory failure, unspecified whether with hypoxia or hypercapnia (2) Pulmonary edema Qualifiers: Chronicity: acute Qualified Code(s): J81.0 - Acute pulmonary edema (3) Demand ischemia Impression: PLAN: Might add Beta blocked when BP tolerates, already anticoagulated on coumadin with Tx INR (4) Hypomagnesemia Impression: PLAN: Replaced Mag. (5) Tachycardia Impression: Had Afib with RVR, alternating with Sinus tachycardia PLAN: Digoxin load (6) Renal failure Impression: Multifactorial: sepsis/medication induced. Improving on IV hydration, now with UOP ~ 200 ml/hr. Qualifiers: Renal failure chronicity: acute
[2017-06-21] MEDS ORDERED: MAGNESIUM SULFATE 2 GRAM 2 GM/50 ML BAG IV SCH (23:00)
[2017-06-21 23:33] LABS: VBG BASE EXCESS -9.7 mmol/L (-2 - +2); VBG OXYGEN SATURATION 98.7 % (60-80); VBG PH 7.3 (7.31-7.41); VBG TOTAL CO2 16.6 mmol/L (24-29)
[2017-06-22] MEDS ORDERED: DIGOXIN 500 MCG/2 ML AMP IVP SCH (04:00)
[2017-06-22] MEDS: SODIUM CHLORIDE FLUSH 0.9% 10 ML SYRINGE IVP SCH ×3 (04:08→20:49)
[2017-06-22 05:21] LABS: BASOPHILS % (AUTO) 0.4 %; HCT - HEMATOCRIT 33.7 % (37.0-47.0); HGB - HEMOGLOBIN 11.2 g/dL (12.0-16.0); LYMPHOCYTES % (AUTO) 14.2 %; MEAN CORPUSCULAR HEMOGLOBIN 26.6 pg (27.0-31.0); MEAN CORPUSCULAR HGB CONC 33.3 g/dL (32.0-36.0); MONOCYTES % (AUTO) 2.8 %; NEUTROPHILS % (AUTO) 82.6 %; RED BLOOD COUNT 4.22 10^6/uL (4.20-5.40); RED CELL DISTRIBUTION WIDTH 15.5 % (12.0-15.0); UNCORRECTED WHITE BLOOD COUNT 2.2 x10^3/uL; WHITE BLOOD COUNT 2.2 x10^3/uL (4.8-10.8)
[2017-06-22 05:37] LABS: ALBUMIN/GLOBULIN RATIO 0.9 (1.0-2.2); BILIRUBIN,TOTAL 1.8 mg/dL (0.2-1.0); CALCIUM 7.5 mg/dL (8.5-10.3); CREATININE 2.7 mg/dL (0.4-1.0); MAGNESIUM 1.7 mg/dL (1.7-2.8); POTASSIUM 3.5 mmol/L (3.5-5.0)
[2017-06-22 06:01] LABS: BAND NEUTROPHILS % (MANUAL) 24 %; LYMPHOCYTES % (MANUAL) 9 %; NEUTROPHILS % (MANUAL) 65 %; TOTAL CELLS COUNTED 100
[2017-06-22 06:02] LABS: NP AUTO DIFFERENTIAL? YES; NP MAN DIFFERENTIAL? NO; PLATELET ESTIMATE, MANUAL DECREASED (<130,000) (NORMAL)
--- NOTE | 2017-06-22 06:46 | XRAY Preliminary Report ---
Exam: XR CHEST 1 VIEW IMPRESSION: 1. Bibasilar atelectasis or infiltrate and small pleural effusions. [facility] SITE ID: [id number]
--- NOTE | 2017-06-22 06:49 | XRAY Report ---
EXAM: CHEST RADIOGRAPHY EXAM DATE: 06/22/2017 06:36 AM. CLINICAL HISTORY: Respiratory distress. COMPARISON: 06/21/2017. TECHNIQUE: 1 view. FINDINGS: Lungs/Pleura: Bibasilar atelectasis or infiltrate. Small pleural effusions. No pneumothorax. Mediastinum: Within exam limitations, the cardiomediastinal contour is normal. Other: None. IMPRESSION: 1. Bibasilar atelectasis or infiltrate and small pleural effusions. [facility] Referring Provider Line: [phone] SITE ID: [id number]
--- NOTE | 2017-06-22 08:28 | HISTORY & PHYSICAL EXAMINATION ---
DATE OF ADMISSION: 06/21/2017 REASON FOR ADMISSION: This is a 76-year-old white female admitted for hypotension. PAST MEDICAL HISTORY: The patient has an essentially negative past medical history except for recent treatment with antibiotics for pneumonia, weakness and diarrhea, seen at [facility] over the past 1 week, 3 times for these complaints. She was sent home on antibiotics. History of DVT. HISTORY OF PRESENT ILLNESS: The patient presents to our hospital with severe weakness, unable to get out of bed, describes the upper recent HPI. She has been taking all of her medications. In the emergency room, she was found to be hypotensive, hypokalemic and was treated for shock. She received 3 liters of saline. She was obtunded and had awakened after hydration. In the ICU, as I examine her, she states that she has no discomfort; denies any fever or chills, cough, sputum, diarrhea, chest pain, palpitations, syncope. She has poor memory over the last 4 days. SOCIAL HISTORY: She has never smoked, drinks no alcohol, denies illicit drug use. She lives with her . Up until 1 week ago, she made meals, did house cleaning and all ADLs. FAMILY HISTORY: There is no history of diabetes, hypertension, cancer. No inherited diseases. MEDICATIONS 1. Tums. 2. Lasix. 3. Theragran. 4. Vitamins. 5. Potassium. 6. Coumadin. REVIEW OF SYSTEMS AND CHART REVIEW: The patient had a history of a DVT several years ago and recurrence 2 months ago for which she is on Coumadin now. History of IBS, vaginal cancer, cholecystitis, recent diarrhea over the past 3-4 days. All other organ systems had a comprehensive review and are negative. PHYSICAL EXAMINATION GENERAL: Exam reveals white female who appears weak and dehydrated. As she answers, she drifts off to sleep intermittently. VITAL SIGNS: Blood pressure in the emergency room was 81/50 and after 3 liters of saline, has improved to 116/58. Heart rate was 161 in rapid atrial fibrillation and after saline infusion only, no heart rate slowing medications, she converted to sinus rhythm at rates in the 90s-100s. She is afebrile and not hypothermic. HEENT: Exam shows lethargy, dry sclerae and oral mucosa. NECK: No JVD at 30-degree upright angle. No carotid bruits, no thyromegaly or lymphadenopathy. CHEST: Clear. HEART: Sounds normal. No audible murmurs. No heave or gallop. ABDOMEN: Soft. Positive bowel sounds. EXTREMITIES: +1 edema on the right with no tenderness or cords, normal on the left lower extremity. NEUROLOGIC: Intact except for somnolence. LABORATORY DATA: Sodium 130, potassium 2.8, BUN 39, creatinine 3.0 (has a normal creatinine at baseline), glucose 206. Lactic acid level normal at 1.4, magnesium 1.5, AST 326, ALT 147. Troponin 0.21. Lipase 70. White count 2.1 with low neutrophil count of 1.4, hemoglobin 10.2, low MCV of 78.9. Platelet count low at 95, previously normal in 200-300 range. INR 1.9. Urine pH 6.0, protein high at 30. Esterase negative, marked amorphous sediments, few bacteria. Negative influenza A and B test. IMAGING: Mild congestive heart failure versus interstitial changes. EKG: AFib, rapid rate, with diffuse nonspecific ST-T changes. A subsequent EKG: sinus rhythm at a rate of 99 with left atrial enlargement and diffusely flat T waves. IMPRESSION/DIAGNOSES: 1) Hypotension - Probably due to dehydration but R/O septic shock and R/O cardiogenic shock. 2) Acute Kidney Injury, likely caused by volume depletion. 3) New onset of paroxysmal Afib with RVR. 4) Pulmonary edema vs interstitial lung disease vs ARDS 5) Probable UTI 6) Pancytopenia 7) Recent diarrhea after antibiotics 8) Poss. recent bronchitis 9) Recurrence of DVT, on Coumadin with therapeutic INR PLAN: Admit to ICU. Continue hydration with saline. Fully culture and start empiric antibiotics for possible UTI source. Stop the outpatient Lasix and Potassium. Stop the Coumadin due to risk of bleeding with thrombocytopenia. Use SCD on left leg for DVT prophylaxis. Obtain Echo to check LVEF. Cycle troponins to R/O acute PR. Follow her CBC and BMP daliy. CODE STATUS: Full code DVT prophylaxis: SCDs Time required for admission: 45 min. JOB #: [id number] EXT JOB #:[id number] ALBARO
[2017-06-22] MEDS: FAMOTIDINE 20 MG/50 ML 50 ML IV SCH ×2 (08:37→20:48)
[2017-06-22] MEDS ORDERED: WARFARIN 6 MG PO SCH (09:00)
[2017-06-22] MEDS ORDERED: FUROSEMIDE 40 MG PO SCH (09:00)
[2017-06-22] MEDS ORDERED: cefTRIAXone 1 GM in SODIUM CHLORIDE 0.9% MINIBAG 100 ML IV SCH (09:00)
[2017-06-22] MEDS ORDERED: MULTIVITAMIN PO SCH (09:00)
[2017-06-22] MEDS ORDERED: NON FORMULARY MED (Potassium Chloride [Potassium Chloride] 20 MEQ) PO SCH (09:00)
[2017-06-22] MEDS ORDERED: CALCIUM CARBONATE 500 MG PO SCH (09:00)
[2017-06-22] MEDS: SODIUM CHLORIDE FLUSH 0.9% 10 ML SYRINGE IVP PRN ×2 (09:14→09:19)
--- NOTE | 2017-06-22 11:17 | Nuclear Medicine Prelim Report ---
Exam: NM LUNG VENT/PERF V/Q IMPRESSION: 1. No ventilation/perfusion mismatches to indicate pulmonary emboli. Low probability for acute pulmon agnes embolism. 2. Other findings as noted above. [facility] SITE ID: [id number]
--- NOTE | 2017-06-22 11:20 | Nuclear Medicine Report ---
EXAM: VENTILATION/PERFUSION SCAN (V/Q SCAN) EXAM DATE: 06/22/2017 10:52 AM. CLINICAL HISTORY: Rule out PE. COMPARISON: Chest radiograph 06/22/2017. TECHNIQUE: Patient was administered 37.1 mCi of technetium 99m DTPA aerosol by inhalation and 8 stand melanie ventilation images of the lungs were obtained. Next, the patient was injected with 4.8 mCi of isaura hnetium 99m MAA intravenously and 8 standard perfusion images of the lungs were obtained. FINDINGS: Perfusion images demonstrate mildly inhomogeneous perfusion to the lungs bilaterally without convinci ng segmental deficit. On ventilatory images, there is no evidence of significant mismatch. There hete rogeneous ventilatory activity bilaterally with posterior basal nonsegmental deficit which may be due to atelectasis or effusion. There is mild central airway deposition. IMPRESSION: 1. No ventilation/perfusion mismatches to indicate pulmonary emboli. Low probability for acute pulmon agnes embolism. 2. Other findings as noted above. [facility] Referring Provider Line: [phone] SITE ID: [id number]
--- NOTE | 2017-06-22 12:57 | CT Preliminary Report ---
Exam: CT HEAD W/O STROKE PROTOCOL IMPRESSION: 1. Generalized age-related cortical atrophic changes without evidence of acute intracranial abnormali ty. 2. No evidence for intracranial hemorrhage or large recent infarct. CRITICAL TEST: The findings were discussed with Dr. Presley on day of exam at 12:53 PM. [facility] SITE ID: [id number]
--- NOTE | 2017-06-22 12:59 | CT Report ---
EXAM: CT HEAD EXAM DATE: 06/22/2017 12:24 PM. CLINICAL HISTORY: Confusion, garbled speech. COMPARISON: None. TECHNIQUE: Multiaxial CT images were obtained from the foramen magnum to the vertex. IV contrast: Non e. Reformats: Coronal. In accordance with CT protocol optimization, one or more of the following dose reduction techniques w ere utilized for this exam: automated exposure control, adjustment of mA and/or KV based on patient s ize, or use of iterative reconstructive technique. FINDINGS: Parenchyma: No intraparenchymal hemorrhage. No evidence of mass, midline shift, or CT findings of acu te infarction. Nava-white differentiation is distinct. Diffuse chronic microangiopathic white matter changes are evident. Extraaxial Spaces: Normal for age. No subdural or epidural collections identified. Ventricles: The ventricles and cortical sulci are enlarged, consistent with age-related tissue loss. Sinuses and orbits: Imaged paranasal sinuses, orbits, and mastoids show no significant abnormality. Bones: No evidence of fracture or calvarial defect. Other: None. IMPRESSION: 1. Generalized age-related cortical atrophic changes without evidence of acute intracranial abnormali ty. 2. No evidence for intracranial hemorrhage or large recent infarct. CRITICAL TEST: The findings were discussed with Dr. Presley on day of exam at 12:53 PM. [facility] Referring Provider Line: [phone] SITE ID: [id number]
[2017-06-22] MEDS: NYSTATIN CREAM 15 GM TUBE TOP SCH (13:04)
--- NOTE | 2017-06-22 13:08 | CT Preliminary Report ---
Exam: CT ABDOMEN W/O IMPRESSION: 1. Moderate soft tissue stranding adjacent to pancreatic head raises concern for pancreatitis. Duoden al inflammation not excluded, however there is no extraluminal air evident. 2. Small bilateral pleural effusions. Case discussed with Dr. Presley on day of exam at 12:53 PM. [facility] SITE ID: [id number]
--- NOTE | 2017-06-22 13:11 | CT Report ---
EXAM: CT ABDOMEN EXAM DATE: 06/22/2017 12:27 PM. CLINICAL HISTORY: Abn LFTs, possible sepsis. COMPARISON: Abdominal CT 03/07/2017. TECHNIQUE: Routine helical CT imaging was performed through the abdomen. IV contrast: None Enteric c ontrast: No. Reconstruction: Coronal and sagittal. In accordance with CT protocol optimization, one or more of the following dose reduction techniques w ere utilized for this exam: automated exposure control, adjustment of mA and/or KV based on patient s ize, or use of iterative reconstructive technique. FINDINGS: Lung Bases: Unremarkable. Liver: Small layering bilateral pleural effusions with adjacent lower lobe atelectasis. Gallbladder/Bile Ducts: Prior cholecystectomy. No biliary ductal dilatation. Spleen: Normal. Pancreas: Moderate soft tissue stranding adjacent to pancreatic head. Evaluation is somewhat limited by patient motion artifact. No main pancreatic ductal dilatation. Partial fatty replacement of pancre as head. Adrenal Glands: Normal. Kidneys: 8 mm hyperdense anterior right upper renal cyst with attenuation 84 HU, compatible with prot einaceous or hemorrhagic cyst. No suspicious masses or hydronephrosis. Peritoneal Cavity/Bowel: No dilated bowel. No bulky adenopathy. No free intraperitoneal air. Vasculature: Prominent atherosclerotic calcified plaque. No abdominal aortic aneurysm. Bones: Grade 2 anterolisthesis of L5 on S1 with an covering of disk and right greater than left neura l foraminal narrowing. Bilateral L5-S1 facet hypertrophy. Degenerative changes are also noted at L4-L 5 and L1-L2 levels. Sclerosis predominantly along the iliac sides of bilateral sacroiliac joints. Met allic clip anterior to left SI joint. Other: None. IMPRESSION: 1. Moderate soft tissue stranding adjacent to pancreatic head raises concern for pancreatitis. Duoden al inflammation not excluded, however there is no extraluminal air evident. 2. Small bilateral pleural effusions. Case discussed with Dr. Presley on day of exam at 12:53 PM. [facility] Referring Provider Line: [phone] SITE ID: [id number]
[2017-06-22] MEDS: MIN OIL/DIMETHICON/COCONUT OIL 92 GM TUBE TOP PRN ×2 (15:00→17:23)
[2017-06-22 15:21] LABS: AMYLASE 272 U/L (28-100); LIPASE 75 U/L (22-51)
[2017-06-22 15:36] LABS: FIBRINOGEN 272 mg/dL (220-496)
[2017-06-22 15:41] LABS: INR 3.2 (0.8-1.2); PT - PROTHROMBIN TIME 34.3 secs (9.9-12.6)
[2017-06-22 15:48] LABS: PARTIAL THROMBOPLASTIN TIME 36.6 secs (24.9-33.3)
[2017-06-22 16:00] LABS: D-DIMER > 1050.0 ng/mL (200.0-255.0)
--- NOTE | 2017-06-22 17:22 | PROVIDER PROGRESS NOTE ---
Assessment/Plan - Problem List (1) Confusion Assessment/Plan: The patient's stepdaughter gave me more details: the patient would be confused daily for the past week, taken to [facility] and given fluids in their ER, perked up and was sent home on 3 separate occaisions. Today's confusion is a similar occurence, per step-daughter. CT of head w/o contrast showed no hemorrhage, mass or shift. I suspect she is confused due to sepsis. Continue to observe for nuchal rigidity or other neurologic worsening (2) Diarrhea Qualifiers: Diarrhea type: unspecified type Qualified Code(s): R19.7 - Diarrhea, unspecified Assessment/Plan: This was also a complaint for the past 5 days. Cultures to be sent. (3) DIONISIO (acute kidney injury) Assessment/Plan: Minimal improvement with hydration yesterday. Now iv fluids stopped due to SOB and pleural effusions. Continue to monitor BMP. (4) Pancytopenia Assessment/Plan: Infectious cause may be pancreatitis per abdominal CT, which could also be the cause of her diarrhea. Will obtain labs to check for DIC. Continue to remain off Coumadin with thrombocytopenia. Watch for bleeding and may need plt transfusion. (5) Cough Assessment/Plan: With confusion, concern is for aspiration. A swallowing eval was ordered and showed impaired glutition. Pt would need pureed food, but will order bowel rest due to pancreatitis. (6) Pancreatitis Qualifiers: Acute pancreatitis complication: unspecified Assessment/Plan: The patient had a history of gallstone pancreatitis in 2013 which klead to a cholecystectomy. Will order bowel rest, iv meds, empiric antibiotics (7) Hypotension Assessment/Plan: Resolved - Current Meds Current Meds: Current Medications Generic Name Dose Route Start Last Admin Trade Name Freq PRN Reason Stop Dose Admin Famotidine 50 mls @ 100 mls/hr 06/21/17 21:00 06/22/17 09:14 Pepcid 20 Mg/50 Ml IV Infused BID MICHELLE Infusion Ceftriaxone Sodium 1 gm/ 100 mls @ 200 mls/hr 06/22/17 09:00 06/22/17 09:19 Sodium Chloride IV Infused DAILY MICHELLE Infusion Nystatin 1 applic 06/22/17 12:00 06/22/17 13:04 Mycostatin Cream TOP 1 applic BID MICHELLE Administration Sodium Chloride 10 ml 06/21/17 14:00 06/22/17 16:20 Normal Saline Flush 0.9% IVP 10 ml Q8HR MICHELLE Administration Sodium Chloride 10 ml 06/21/17 12:06 06/22/17 09:19 Normal Saline Flush 0.9% IVP 10 ml PRN PRN Administration NEEDED PER PROVIDER ORDERS - Lab Result Fish Bone Diagrams: 06/22/17 04:49 06/22/17 04:49 - Additional Planning My Orders: My Active Orders 06/21/17 19:03 Miscellaenous Nursing Order [RC] QSHIFT 06/22/17 Clinical Swallow Evaluation [ST] Routine 06/22/17 09:00 cefTRIAXone [Rocephin] 1 gm Sodium Chloride 0.9% Minibag [Normal Saline 0.9% Minibag] 100 ml IV DAILY 06/22/17 12:00 Nystatin Cream [Mycostatin Cream] 1 applic TOP BID 06/22/17 12:04 Incentive Spirometry - RT [RC] TID 06/22/17 12:55 CUL, URINE [RM] Routine CULTURE, STOOL [RM] Routine NOROVIRUS RNA PCR STOOL [REFLAB] Routine 06/22/17 13:25 Min Oil/Dimeth/Coconut Oil Crm [Cavilon] 1 applic TOP PRN PRN 06/22/17 Dinner DIET [Dysphagia Puree Diet] [DIET] Subjective - Subjective Nursing Reports: Confused, Cough, Diarrhea, Shortness of Breath Objective Vital Signs: Vital Signs - 24 hr 06/21/17 06/21/17 06/21/17 18:00 19:07 20:00 Temperature 36.8 C Heart Rate Heart Rate [ 102 H 105 H 91 Monitoring electrodes] Respiratory 27 H 28 H 26 H Rate Blood Pressure 136/71 H 145/55 H 126/53 L [Left Brachial artery] O2 Saturation 97 96 98 06/21/17 06/21/17 06/21/17 21:00 21:49 22:00 Temperature Heart Rate 101 H Heart Rate [ 109 H 104 H Monitoring electrodes] Respiratory 29 H 29 H Rate Blood Pressure 133/64 H 140/63 H [Left Brachial artery] O2 Saturation 98 99 06/21/17 06/21/17 06/21/17 22:34 22:44 23:00 Temperature Heart Rate 100 103 H Heart Rate [ 99 Monitoring electrodes] Respiratory 27 H 27 H Rate Blood Pressure 139/71 H [Left Brachial artery] O2 Saturation 94 06/21/17 06/22/17 06/22/17 23:46 00:10 00:18 Temperature 37.4 C Heart Rate 107 H 104 H Heart Rate [ 96 Monitoring electrodes] Respiratory 27 H Rate Blood Pressure 129/85 H [Left Brachial artery] O2 Saturation 95 06/22/17 06/22/17 06/22/17 01:00 01:38 02:00 Temperature 36.6 C Heart Rate 103 H Heart Rate [ 105 H 97 Monitoring electrodes] Respiratory 35 H 29 H Rate Blood Pressure 125/95 H 131/58 H [Left Brachial artery] O2 Saturation 94 94 06/22/17 06/22/17 06/22/17 03:00 03:24 04:00 Temperature 36.6 C Heart Rate 92 Heart Rate [ 93 101 H Monitoring electrodes] Respiratory 29 H 28 H Rate Blood Pressure 122/56 L 120/52 L [Left Brachial artery] O2 Saturation 94 96 06/22/17 06/22/17 06/22/17 04:08 05:00 06:00 Temperature Heart Rate 98 Heart Rate [ 93 98 Monitoring electrodes] Respiratory 31 H 30 H Rate Blood Pressure 121/48 L 117/63 [Left Brachial artery] O2 Saturation 95 97 06/22/17 06/22/17 06/22/17 06:13 06:46 06:53 Temperature Heart Rate 100 97 Heart Rate [ 97 Monitoring electrodes] Respiratory 20 Rate Blood Pressure 130/66 [Left Brachial artery] O2 Saturation 97 06/22/17 06/22/17 06/22/17 08:00 08:58 10:00 Temperature 36.6 C Heart Rate Heart Rate [ 94 101 H 102 H Monitoring electrodes] Respiratory 32 H 28 H 32 H Rate Blood Pressure 123/54 L 132/57 H 126/81 H [Left Brachial artery] O2 Saturation 97 98 100 06/22/17 06/22/17 06/22/17 11:00 11:32 12:00 Temperature 37.1 C Heart Rate Heart Rate [ 105 H 103 H Monitoring electrodes] Respiratory 29 H 28 H Rate Blood Pressure 125/58 L 114/82 H [Left Brachial artery] O2 Saturation 99 100 06/22/17 06/22/17 06/22/17 13:00 13:56 14:00 Temperature Heart Rate 103 H Heart Rate [ 104 H 92 Monitoring electrodes] Respiratory 28 H 26 H Rate Blood Pressure 126/72 123/56 L [Left Brachial artery] O2 Saturation 98 96 06/22/17 06/22/17 06/22/17 15:00 16:00 17:00 Temperature 37.3 C Heart Rate Heart Rate [ 104 H 105 H 104 H Monitoring electrodes] Respiratory 32 H 28 H 30 H Rate Blood Pressure 118/60 117/44 L 127/52 L [Left Brachial artery] O2 Saturation 97 93 92 Oxygen O2 Source Nasal cannula I&O (Last 24 Hrs): Intake and Output Totals x24h 06/20/17 06/21/17 06/22/17 23:59 23:59 23:59 Intake Total 1966.25 1322.917 Output Total 1699 1685 Balance 267.25 -362.083 General: Mild distress, Other (Hallucinating (sees glasses in the air) Garbled speech) HEENT: Other (Mucosa dry) Neck: No JVD Neuro: Disoriented Cardiovascular: Regular rate Respiratory: Other (Using excessory muscles and RR 25-30. Clear lung david bilat.) Extremities: Other (R swollen 1+, L has SCD) - Results Results: Laboratory Results WBC 2.2 x10^3/uL (4.8-10.8) L 06/22/17 04:49 RBC 4.22 10^6/uL (4.20-5.40) 06/22/17 04:49 Hgb 11.2 g/dL (12.0-16.0) L 06/22/17 04:49 Hct 33.7 % (37.0-47.0) L 06/22/17 04:49 MCV 80.0 fL (81.0-99.0) L 06/22/17 04:49 MCH 26.6 pg (27.0-31.0) L 06/22/17 04:49 MCHC 33.3 g/dL (32.0-36.0) 06/22/17 04:49 RDW 15.5 % (12.0-15.0) H 06/22/17 04:49 Plt Count 91 10^3/uL (130-450) L 06/22/17 04:49 MPV 9.0 fL (7.9-10.8) 06/22/17 04:49 Neut # Not Reportable 06/22/17 04:49 Lymph # Not Reportable 06/22/17 04:49 [place] # Not Reportable 06/22/17 04:49 Eos # Not Reportable 06/22/17 04:49 Baso # Not Reportable 06/22/17 04:49 Absolute Nucleated RBC Not Reportable 06/22/17 04:49 Total Counted 100 06/22/17 04:49 Band Neuts % (Manual) 24 % (0-10) H 06/22/17 04:49 Nucleated RBC % Not Reportable 06/22/17 04:49 Neutrophils # (Manual) 2.0 10^3/uL (1.5-6.6) 06/22/17 04:49 Lymphocytes # (Manual) 0.2 10^3/uL (1.5-3.5) L 06/22/17 04:49 Monocytes # (Manual) 0.0 10^3/uL (0.0-1.0) 06/22/17 04:49 Differential Comment MANUAL DIFFERENTIAL 06/22/17 04:49 Manual Slide Review Indicated 06/21/17 09:20 Platelet Estimate DECREASED (<130,000) (NORMAL) 06/22/17 04:49 Platelet Morphology RARE GIANT PLATELETS (NORMAL) 06/21/17 09:20 RBC Morph Micro Appear NORMAL APPEARANCE (NORMAL) 06/22/17 04:49 PT 34.3 secs (9.9-12.6) H 06/22/17 14:27 INR 3.2 (0.8-1.2) H 06/22/17 14:27 APTT 36.6 secs (24.9-33.3) H 06/22/17 14:27 Fibrinogen 272 mg/dL (220-496) 06/22/17 14:27 D-Dimer > 1050.0 ng/mL (200.0-255.0) H 06/22/17 14:27 VBG pH 7.300 (7.31-7.41) L 06/21/17 23:25 VBG pCO2 32.4 mmHg (41-51) L 06/21/17 23:25 VBG pO2 150.7 mmHg (25-47) H 06/21/17 23:25 VBG HCO3 15.6 mmol/L (23-28) L 06/21/17 23:25 VBG Total CO2 16.6 mmol/L (24-29) L 06/21/17 23:25 VBG O2 Saturation 98.7 % (60-80) H 06/21/17 23:25 VBG Base Excess -9.7 mmol/L (-2 - +2) L 06/21/17 23:25 Sodium 137 mmol/L (135-145) 06/22/17 04:49 Potassium 3.5 mmol/L (3.5-5.0) 06/22/17 04:49 Chloride 111 mmol/L (101-111) 06/22/17 04:49 Carbon Dioxide 16 mmol/L (21-32) L 06/22/17 04:49 Anion Gap 10.0 (6-13) 06/22/17 04:49 BUN 37 mg/dL (6-20) H 06/22/17 04:49 Creatinine 2.7 mg/dL (0.4-1.0) H 06/22/17 04:49 Estimated GFR (MDRD) 17 (>89) L 06/22/17 04:49 Glucose 150 mg/dL (70-100) H 06/22/17 04:49 Lactic Acid 1.4 mmol/L (0.5-2.2) 06/21/17 22:20 Calcium 7.5 mg/dL (8.5-10.3) L 06/22/17 04:49 Phosphorus 3.1 mg/dL (2.5-4.6) 06/21/17 19:23 Magnesium 1.7 mg/dL (1.7-2.8) 06/22/17 04:49 Total Bilirubin 1.8 mg/dL (0.2-1.0) H 06/22/17 04:49 AST 632 IU/L (10-42) H 06/22/17 04:49 ALT 250 IU/L (10-60) H 06/22/17 04:49 Alkaline Phosphatase 102 IU/L (42-121) 06/22/17 04:49 Troponin I 0.29 ng/mL (<0.49) 06/21/17 12:35 Total Protein 5.0 g/dL (6.7-8.2) L 06/22/17 04:49 Albumin 2.3 g/dL (3.2-5.5) L 06/22/17 04:49 Globulin 2.7 g/dL (2.1-4.2) 06/22/17 04:49 Albumin/Globulin Ratio 0.9 (1.0-2.2) L 06/22/17 04:49 Amylase 272 U/L (28-100) H 06/22/17 04:49 Lipase 75 U/L (22-51) H 06/22/17 04:49 Urine Color YELLOW 06/21/17 09:40 Urine Clarity CLOUDY (CLEAR) 06/21/17 09:40 Urine pH 6.0 PH (5.0-7.5) 06/21/17 09:40 Ur Specific [place] 1.010 (1.002-1.030) 06/21/17 09:40 Urine Protein 30 mg/dL (NEGATIVE) H 06/21/17 09:40 Urine Glucose (UA) NEGATIVE mg/dL (NEGATIVE) 06/21/17 09:40 Urine Ketones NEGATIVE mg/dL (NEGATIVE) 06/21/17 09:40 Urine Occult Blood LARGE (NEGATIVE) H 06/21/17 09:40 Urine Nitrite NEGATIVE (NEGATIVE) 06/21/17 09:40 Urine Bilirubin NEGATIVE (NEGATIVE) 06/21/17 09:40 Urine Urobilinogen 0.2 (NORMAL) E.U./dL (NORMAL) 06/21/17 09:40 Ur Leukocyte Esterase NEGATIVE (NEGATIVE) 06/21/17 09:40 Urine RBC 6-10 /HPF (0-5) H 06/21/17 09:40 Urine WBC 0-3 /HPF (0-5) 06/21/17 09:40 Ur Squamous Epith Cells FEW Squamous (<= Few) 06/21/17 09:40 Amorphous Sediment Marked /LPF 06/21/17 09:40 Urine Bacteria Few /HPF (None Seen) 06/21/17 09:40 Ur Microscopic Review INDICATED 06/21/17 09:40 Urine Culture Comments NOT INDICATED 06/21/17 09:40 Influenza A (Rapid) Negative (Negative) 06/21/17 11:30 Influenza B (Rapid) Negative (Negative) 06/21/17 11:30 Influenza Types A,B Ag - 06/21/17 11:30 Blood Type A POSITIVE 06/21/17 12:35 Blood Type Recheck A POSITIVE 06/21/17 09:20 Antibody Screen NEGATIVE 11/09/17 12:35 - Procedures Procedures: Procedures COLONOSCOPY (09/24/14) INTRAOPER CHOLANGIOGRAM (09/05/13) LAPAROSCOPIC CHOLECYSTECTOMY (09/05/13)
[2017-06-22] MEDS: LACTATED RINGERS 1,000 ML IV SCH (17:53)
[2017-06-22] MEDS: CEFEPIME 1 GM in SODIUM CHLORIDE 0.9% MINIBAG 100 ML IV SCH (19:14)
[2017-06-22] MEDS: metroNIDAZOLE 500 MG/100 ML 500 MG/100 ML BAG IV SCH (20:41)
[2017-06-22] MEDS ORDERED: SODIUM CHLORIDE FLUSH 0.9% 10 ML SYRINGE IVP ONE (20:43)
[2017-06-23] MEDS: metroNIDAZOLE 500 MG/100 ML 500 MG/100 ML BAG IV SCH ×4 (02:50→20:35)
[2017-06-23] MEDS: NYSTATIN CREAM 15 GM TUBE TOP SCH ×3 (02:50→21:42)
[2017-06-23 05:34] LABS: ALBUMIN/GLOBULIN RATIO 0.9 (1.0-2.2); BILIRUBIN,TOTAL 2.6 mg/dL (0.2-1.0); CALCIUM 7.7 mg/dL (8.5-10.3); CREATININE 2.6 mg/dL (0.4-1.0); MAGNESIUM 1.9 mg/dL (1.7-2.8); POTASSIUM 3.4 mmol/L (3.5-5.0); TOTAL PROTEIN 5.2 g/dL (6.7-8.2)
[2017-06-23] MEDS: SODIUM CHLORIDE FLUSH 0.9% 10 ML SYRINGE IVP SCH ×3 (05:58→21:42)
[2017-06-23 06:13] LABS: BASOPHILS % (AUTO) 0.2 %; EOSINOPHILS % (AUTO) 0.1 %; HGB - HEMOGLOBIN 11.6 g/dL (12.0-16.0); LYMPHOCYTES % (AUTO) 22.6 %; MEAN CORPUSCULAR HEMOGLOBIN 26.6 pg (27.0-31.0); MEAN CORPUSCULAR HGB CONC 33.2 g/dL (32.0-36.0); MEAN CORPUSCULAR VOLUME 80.1 fL (81.0-99.0); MEAN PLATELET VOLUME 9.4 fL (7.9-10.8); NEUTROPHILS % (AUTO) 73.1 %; RED BLOOD COUNT 4.37 10^6/uL (4.20-5.40); RED CELL DISTRIBUTION WIDTH 15.4 % (12.0-15.0); UNCORRECTED WHITE BLOOD COUNT 2.3 x10^3/uL; WHITE BLOOD COUNT 2.3 x10^3/uL (4.8-10.8)
[2017-06-23 06:46] LABS: BAND NEUTROPHILS % (MANUAL) 18 %; LYMPHOCYTES % (MANUAL) 21 %; NEUTROPHILS % (MANUAL) 57 %; NP AUTO DIFFERENTIAL? YES; NP MAN DIFFERENTIAL? NO; PLATELET ESTIMATE, MANUAL DECREASED (<130,000) (NORMAL); TOTAL CELLS COUNTED 100
[2017-06-23] MEDS: LACTATED RINGERS 1,000 ML IV SCH ×2 (07:47→21:43)
[2017-06-23] MEDS ORDERED: WARFARIN 4 MG PO SCH (09:00)
[2017-06-23] MEDS: FAMOTIDINE 20 MG/50 ML 50 ML IV SCH ×2 (09:29→21:42)
[2017-06-23] MEDS ORDERED: LORazepam 0.5 MG TABLET PO SCH (15:00)
--- NOTE | 2017-06-23 17:51 | PROVIDER PROGRESS NOTE ---
Assessment/Plan - Problem List (1) DIC (disseminated intravascular coagulation) Assessment/Plan: DIC score is elevated. Will start Heparin infusion if no evidence of intracranial hemorrhage (2) Pancreatitis Qualifiers: Chronicity: acute Acute pancreatitis complication: unspecified Assessment/Plan: with elevated LFTs and pancytopenia, pt in critical condition Continue hydration and empiric antibiotics and ICU care (3) Confusion Assessment/Plan: Improved slightly Poss due to sepsis but still concerned of a CVA. Will get brain MRI today (4) Diarrhea Qualifiers: Diarrhea type: unspecified type Qualified Code(s): R19.7 - Diarrhea, unspecified Assessment/Plan: Slightly improved Getting topical creams (5) DIONISIO (acute kidney injury) Assessment/Plan: Very minimal improvement Continue roscoe rehydration Follow BMP (6) Pancytopenia Assessment/Plan: DIC W/U positive (Score of 6 from MedScape site) No evidence of bleeding Continue to remain off Coumadin due to low Plt count Follow CBC (7) Hypotension Assessment/Plan: Resolved Continue iv hydration - Current Meds Current Meds: Current Medications Generic Name Dose Route Start Last Admin Trade Name Freq PRN Reason Stop Dose Admin Famotidine 50 mls @ 100 mls/hr 06/21/17 21:00 06/23/17 10:00 Pepcid 20 Mg/50 Ml IV Infused BID MICHELLE Infusion Lactated Ringer's 1,000 mls @ 80 mls/hr 06/22/17 18:00 06/23/17 07:47 Lr IV 80 mls/hr .[id number] MICHELLE Administration Cefepime HCl 1 gm/ Sodium 100 mls @ 200 mls/hr 06/22/17 19:00 06/22/17 19:45 Chloride IV Infused Q24H MICHELLE Infusion Metronidazole 500 mg in 100 mls @ 100 mls/hr 06/22/17 20:00 06/23/17 13:45 Flagyl 500 Mg/100 Ml IV 100 mls/hr Q6H MICHELLE Administration Lorazepam 0.5 mg 06/23/17 15:00 06/23/17 15:45 Ativan PO 06/23/17 21:00 0.5 mg ONCE MICHELLE Administration Mineral Oil 1 applic 06/22/17 13:25 06/22/17 17:23 Cavilon TOP 1 applic PRN PRN Administration Skin Care Nystatin 1 applic 06/22/17 12:00 06/23/17 09:29 Mycostatin Cream TOP 1 applic BID MICHELLE Administration Sodium Chloride 10 ml 06/21/17 14:00 06/23/17 13:45 Normal Saline Flush 0.9% IVP 10 ml Q8HR MICHELLE Administration Sodium Chloride 10 ml 06/21/17 12:06 06/22/17 09:19 Normal Saline Flush 0.9% IVP 10 ml PRN PRN Administration NEEDED PER PROVIDER ORDERS - Lab Result Fish Bone Diagrams: 06/23/17 05:09 06/23/17 05:09 - Additional Planning My Orders: My Active Orders 06/22/17 17:37 DIET [NPO] [DIET] 06/22/17 18:00 Lactated Ringers [Lr] 1,000 ml IV 80 mls/hr 06/22/17 19:00 Cefepime 1 gm Sodium Chloride 0.9% Minibag [Normal Saline 0.9% Minibag] 100 ml IV Q24H 06/22/17 20:00 metroNIDAZOLE 500 MG/100 ML [Flagyl 500 mg/100 ml] 500 mg in 100 ml IV Q6H 06/23/17 Brain W/O [MRI] Routine 06/23/17 15:00 LORazepam [Ativan] 0.5 mg PO ONCE Subjective - Subjective Nursing Reports: Other (Garbled speech or short appropriate answers Anxious that she can't communicate R arm weakness) Objective Vital Signs: Vital Signs - 24 hr 06/22/17 06/22/17 06/22/17 18:00 18:53 18:55 Temperature 37.6 C H Heart Rate 100 107 H Heart Rate [ 105 H 107 H Monitoring electrodes] Respiratory 33 H 33 H 33 H Rate Blood Pressure 102/53 L 126/55 L [Left Brachial artery] O2 Saturation 93 93 06/22/17 06/22/17 06/22/17 20:00 20:45 21:00 Temperature 36.6 C Heart Rate 108 H 105 H Heart Rate [ 105 H 105 H Monitoring electrodes] Respiratory 35 H 23 Rate Blood Pressure 112/44 L 102/91 H [Left Brachial artery] O2 Saturation 97 96 06/22/17 06/22/17 06/23/17 22:00 23:00 00:00 Temperature 36.4 C L Heart Rate 104 H Heart Rate [ 107 H 105 H 104 H Monitoring electrodes] Respiratory 30 H 28 H 30 H Rate Blood Pressure 117/45 L 94/52 L 111/55 L [Left Brachial artery] O2 Saturation 95 94 97 06/23/17 06/23/17 06/23/17 01:00 02:00 03:00 Temperature Heart Rate 105 H 103 H Heart Rate [ 110 H 111 H 110 H Monitoring electrodes] Respiratory 33 H 32 H 32 H Rate Blood Pressure 133/50 H 115/87 H 103/89 H [Left Brachial artery] O2 Saturation 97 95 98 06/23/17 06/23/17 06/23/17 04:00 05:00 06:00 Temperature 36.4 C L Heart Rate 105 H Heart Rate [ 105 H 106 H 107 H Monitoring electrodes] Respiratory 30 H 32 H 30 H Rate Blood Pressure 131/50 H 140/55 H 129/53 L [Left Brachial artery] O2 Saturation 94 94 94 06/23/17 06/23/17 06/23/17 07:00 07:40 08:00 Temperature 36.4 C L Heart Rate 104 H Heart Rate [ 106 H 97 Monitoring electrodes] Respiratory 32 H 31 H 29 H Rate Blood Pressure 137/63 H 138/61 H [Left Brachial artery] O2 Saturation 94 93 06/23/17 06/23/17 06/23/17 09:00 10:00 11:00 Temperature Heart Rate Heart Rate [ 98 98 101 H Monitoring electrodes] Respiratory 26 H 26 H 26 H Rate Blood Pressure 114/69 124/45 L 128/52 L [Left Brachial artery] O2 Saturation 100 100 99 06/23/17 06/23/17 06/23/17 12:00 13:00 14:00 Temperature 36.8 C Heart Rate Heart Rate [ 105 H 104 H 100 Monitoring electrodes] Respiratory 25 H 26 H 30 H Rate Blood Pressure 136/63 H 143/51 H 139/71 H [Left Brachial artery] O2 Saturation 99 100 94 06/23/17 06/23/17 06/23/17 15:00 16:00 17:00 Temperature 37.9 C H 36.7 C Heart Rate Heart Rate [ 105 H 104 H 110 H Monitoring electrodes] Respiratory 18 28 H 31 H Rate Blood Pressure 108/82 H 141/60 H 158/50 H [Left Brachial artery] O2 Saturation 99 91 L Oxygen O2 Source Nasal cannula I&O (Last 24 Hrs): Intake and Output Totals x24h 06/21/17 06/22/17 06/23/17 23:59 23:59 23:59 Intake Total 1966.25 2636.374 2993.333 Output Total 1698 3014 1443 Balance 267.25 -376.416 -67.667 General: Other (Aware of surroundings and people (daughter visited, Pt remembered me)) HEENT: Other (Dry mucosa and mouth breathing Bit her tounge) Neck: No JVD Neuro: Disoriented, Speech Slurred, Other (R finger weakness) Cardiovascular: Regular rate, No murmurs Respiratory: Breath sounds nml, Other (Resp rate increases as she becomes anxious) Abdomen: Soft Extremities: Other (R has 1+ edema) - Results Results: Laboratory Results WBC 2.3 x10^3/uL (4.8-10.8) L 06/23/17 05:09 RBC 4.37 10^6/uL (4.20-5.40) 06/23/17 05:09 Hgb 11.6 g/dL (12.0-16.0) L 06/23/17 05:09 Hct 35.0 % (37.0-47.0) L 06/23/17 05:09 MCV 80.1 fL (81.0-99.0) L 06/23/17 05:09 MCH 26.6 pg (27.0-31.0) L 06/23/17 05:09 MCHC 33.2 g/dL (32.0-36.0) 06/23/17 05:09 RDW 15.4 % (12.0-15.0) H 06/23/17 05:09 Plt Count 79 10^3/uL (130-450) L 06/23/17 05:09 MPV 9.4 fL (7.9-10.8) 06/23/17 05:09 Neut # Not Reportable 06/23/17 05:09 Lymph # Not Reportable 06/23/17 05:09 [place] # Not Reportable 06/23/17 05:09 Eos # Not Reportable 06/23/17 05:09 Baso # Not Reportable 06/23/17 05:09 Absolute Nucleated RBC Not Reportable 06/23/17 05:09 Total Counted 100 06/23/17 05:09 Band Neuts % (Manual) 18 % (0-10) H 06/23/17 05:09 Nucleated RBC % Not Reportable 06/23/17 05:09 Neutrophils # (Manual) 1.7 10^3/uL (1.5-6.6) 06/23/17 05:09 Lymphocytes # (Manual) 0.5 10^3/uL (1.5-3.5) L 06/23/17 05:09 Monocytes # (Manual) 0.1 10^3/uL (0.0-1.0) 06/23/17 05:09 Differential Comment MANUAL DIFFERENTIAL 06/23/17 05:09 Manual Slide Review Indicated 06/21/17 09:20 Platelet Estimate DECREASED (<130,000) (NORMAL) 06/23/17 05:09 Platelet Morphology RARE GIANT PLATELETS (NORMAL) 06/21/17 09:20 RBC Morph Micro Appear NORMAL APPEARANCE (NORMAL) 06/23/17 05:09 PT 34.3 secs (9.9-12.6) H 06/22/17 14:27 INR 3.2 (0.8-1.2) H 06/22/17 14:27 APTT 36.6 secs (24.9-33.3) H 06/22/17 14:27 Fibrinogen 272 mg/dL (220-496) 06/22/17 14:27 D-Dimer > 1050.0 ng/mL (200.0-255.0) H 06/22/17 14:27 VBG pH 7.300 (7.31-7.41) L 06/21/17 23:25 VBG pCO2 32.4 mmHg (41-51) L 06/21/17 23:25 VBG pO2 150.7 mmHg (25-47) H 06/21/17 23:25 VBG HCO3 15.6 mmol/L (23-28) L 06/21/17 23:25 VBG Total CO2 16.6 mmol/L (24-29) L 06/21/17 23:25 VBG O2 Saturation 98.7 % (60-80) H 06/21/17 23:25 VBG Base Excess -9.7 mmol/L (-2 - +2) L 06/21/17 23:25 Sodium 139 mmol/L (135-145) 06/23/17 05:09 Potassium 3.4 mmol/L (3.5-5.0) L 06/23/17 05:09 Chloride 112 mmol/L (101-111) H 06/23/17 05:09 Carbon Dioxide 17 mmol/L (21-32) L 06/23/17 05:09 Anion Gap 10.0 (6-13) 06/23/17 05:09 BUN 37 mg/dL (6-20) H 06/23/17 05:09 Creatinine 2.6 mg/dL (0.4-1.0) H 06/23/17 05:09 Estimated GFR (MDRD) 18 (>89) L 06/23/17 05:09 Glucose 131 mg/dL (70-100) H 06/23/17 05:09 Lactic Acid 1.1 mmol/L (0.5-2.2) 06/23/17 05:09 Calcium 7.7 mg/dL (8.5-10.3) L 06/23/17 05:09 Phosphorus 3.1 mg/dL (2.5-4.6) 06/21/17 19:23 Magnesium 1.9 mg/dL (1.7-2.8) 06/23/17 05:09 Total Bilirubin 2.6 mg/dL (0.2-1.0) H 06/23/17 05:09 AST 854 IU/L (10-42) H 06/23/17 05:09 ALT 334 IU/L (10-60) H 06/23/17 05:09 Alkaline Phosphatase 145 IU/L (42-121) H 06/23/17 05:09 Troponin I 0.29 ng/mL (<0.49) 06/21/17 12:35 Total Protein 5.2 g/dL (6.7-8.2) L 06/23/17 05:09 Albumin 2.4 g/dL (3.2-5.5) L 06/23/17 05:09 Globulin 2.8 g/dL (2.1-4.2) 06/23/17 05:09 Albumin/Globulin Ratio 0.9 (1.0-2.2) L 06/23/17 05:09 Amylase 272 U/L (28-100) H 06/22/17 04:49 Lipase 75 U/L (22-51) H 06/22/17 04:49 Urine Color YELLOW 06/21/17 09:40 Urine Clarity CLOUDY (CLEAR) 06/21/17 09:40 Urine pH 6.0 PH (5.0-7.5) 06/21/17 09:40 Ur Specific [place] 1.010 (1.002-1.030) 06/21/17 09:40 Urine Protein 30 mg/dL (NEGATIVE) H 06/21/17 09:40 Urine Glucose (UA) NEGATIVE mg/dL (NEGATIVE) 06/21/17 09:40 Urine Ketones NEGATIVE mg/dL (NEGATIVE) 06/21/17 09:40 Urine Occult Blood LARGE (NEGATIVE) H 06/21/17 09:40 Urine Nitrite NEGATIVE (NEGATIVE) 06/21/17 09:40 Urine Bilirubin NEGATIVE (NEGATIVE) 06/21/17 09:40 Urine Urobilinogen 0.2 (NORMAL) E.U./dL (NORMAL) 06/21/17 09:40 Ur Leukocyte Esterase NEGATIVE (NEGATIVE) 06/21/17 09:40 Urine RBC 6-10 /HPF (0-5) H 06/21/17 09:40 Urine WBC 0-3 /HPF (0-5) 06/21/17 09:40 Ur Squamous Epith Cells FEW Squamous (<= Few) 06/21/17 09:40 Amorphous Sediment Marked /LPF 06/21/17 09:40 Urine Bacteria Few /HPF (None Seen) 06/21/17 09:40 Ur Microscopic Review INDICATED 06/21/17 09:40 Urine Culture Comments NOT INDICATED 06/21/17 09:40 Influenza A (Rapid) Negative (Negative) 06/21/17 11:30 Influenza B (Rapid) Negative (Negative) 06/21/17 11:30 Influenza Types A,B Ag - 06/21/17 11:30 Blood Type A POSITIVE 06/21/17 12:35 Blood Type Recheck A POSITIVE 06/21/17 09:20 Antibody Screen NEGATIVE 06/21/17 12:35 - Procedures Procedures: Procedures COLONOSCOPY (09/24/14) INTRAOPER CHOLANGIOGRAM (09/05/13) LAPAROSCOPIC CHOLECYSTECTOMY (09/05/13)
[2017-06-23] MEDS ORDERED: HEPARIN 5,000 UNIT/ML VIAL IVP SCH (18:24)
[2017-06-23] MEDS: SODIUM CHLORIDE FLUSH 0.9% 10 ML SYRINGE IVP PRN (18:59)
[2017-06-23] MEDS: CEFEPIME 1 GM in SODIUM CHLORIDE 0.9% MINIBAG 100 ML IV SCH (18:59)
[2017-06-23] MEDS: HEPARIN 25,000 UNITS/500 ML NS 25,000 UNIT/500 ML BAG IV SCH (19:09)
--- NOTE | 2017-06-23 19:36 | MRI Preliminary Report ---
Exam: MRI BRAIN W/O Impression: No acute infarct, mass lesion, or other discrete acute intracranial process identified. SITE ID: [id number]
--- NOTE | 2017-06-23 19:39 | MRI Report ---
EXAM: MRI BRAIN WITHOUT CONTRAST COMPARISON: CT head, 06/22/2017. CLINICAL HISTORY: Slurred speech, right arm weakness TECHNIQUE: Multiplanar multisequence imaging is performed through the head without contrast. FINDINGS: Diffusion imaging shows no acute infarct. Gradient sequence shows no evident prior parenchymal hemorrhage. T2 FLAIR imaging shows probably stents of white matter T2 prolongation, concordant with small vessel angiopathy and prior lacunar infarcts. T2 spin-echo imaging shows no prior posterior fossa infarcts. Pituitary fossa, clivus and foramen magnum are unremarkable. No abnormal elevated T1 signal in the brain parenchyma. Ventricular size is normal. Visualized orbits, paranasal sinuses and mastoids are unremarkable. No calvarial signal abnormality. Impression: No acute infarct, mass lesion, or other discrete acute intracranial process identified. Referring Provider Line: [phone] SITE ID: [id number]
[2017-06-24] MEDS: metroNIDAZOLE 500 MG/100 ML 500 MG/100 ML BAG IV SCH ×4 (01:41→20:26)
[2017-06-24] MEDS: LACTATED RINGERS 1,000 ML IV SCH (01:41)
[2017-06-24 05:18] LABS: BASOPHILS % (AUTO) 0.2 %; HCT - HEMATOCRIT 33.2 % (37.0-47.0); HGB - HEMOGLOBIN 11.2 g/dL (12.0-16.0); LYMPHOCYTES # (AUTO) 0.5 10^3/uL (1.5-3.5); LYMPHOCYTES % (AUTO) 15.8 %; MEAN CORPUSCULAR HEMOGLOBIN 26.6 pg (27.0-31.0); MEAN CORPUSCULAR HGB CONC 33.7 g/dL (32.0-36.0); MEAN PLATELET VOLUME 9.2 fL (7.9-10.8); MONOCYTES # (AUTO) 0.1 10^3/uL (0.0-1.0); MONOCYTES % (AUTO) 4.5 %; NEUTROPHILS # (AUTO) 2.7 10^3/uL (1.5-6.6); NEUTROPHILS % (AUTO) 79.5 %; RED CELL DISTRIBUTION WIDTH 15.6 % (12.0-15.0); UNCORRECTED WHITE BLOOD COUNT 3.4 x10^3/uL; WHITE BLOOD COUNT 3.4 x10^3/uL (4.8-10.8)
[2017-06-24 05:36] LABS: ALBUMIN/GLOBULIN RATIO 0.8 (1.0-2.2); BILIRUBIN,TOTAL 2.9 mg/dL (0.2-1.0); CALCIUM 7.9 mg/dL (8.5-10.3); CREATININE 2.5 mg/dL (0.4-1.0); POTASSIUM 3.4 mmol/L (3.5-5.0); TOTAL PROTEIN 4.7 g/dL (6.7-8.2)
[2017-06-24 05:46] LABS: PT - PROTHROMBIN TIME 62.9 secs (9.9-12.6)
[2017-06-24 05:59] LABS: PARTIAL THROMBOPLASTIN TIME 79.5 secs (24.9-33.3)
[2017-06-24 06:01] LABS: FIBRINOGEN 176 mg/dL (220-496)
[2017-06-24] MEDS: SODIUM CHLORIDE FLUSH 0.9% 10 ML SYRINGE IVP SCH ×3 (06:25→22:20)
[2017-06-24 06:51] LABS: D-DIMER > 1050.0 ng/mL (200.0-255.0)
[2017-06-24 07:50] LABS: AMYLASE 242 U/L (28-100); LIPASE 65 U/L (22-51)
[2017-06-24 08:19] LABS: CHOLESTEROL 109 mg/dL; HDL CHOLESTEROL < 5 mg/dL; TRIGLYCERIDES 272 mg/dL; VLDL CHOLESTEROL 54 mg/dL
[2017-06-24] MEDS: FAMOTIDINE 20 MG/50 ML 50 ML IV SCH ×2 (09:34→21:44)
[2017-06-24] MEDS: NYSTATIN CREAM 15 GM TUBE TOP SCH ×2 (09:35→20:37)
[2017-06-24] MEDS: D5.45NS W/20 MEQ KCL 1,000 ML IV SCH ×2 (11:54→21:52)
--- NOTE | 2017-06-24 16:02 | PROVIDER PROGRESS NOTE ---
Assessment/Plan - Problem List (1) DIC (disseminated intravascular coagulation) Assessment/Plan: All lab values indicate she still has active DIC Heparin drip continues at a stable dose, since PTT cannot be used to adjust dose , since PTT is already abnormally elevted in DIC. This condition is associated with high risk of mortality Continue to treat the underlying cause: pancreatitis, but recheck CXR in am (2) Pancreatitis Qualifiers: Chronicity: acute Acute pancreatitis complication: unspecified Assessment/Plan: Possibly due to hypertriglyceridemia Continue fluids and empiric antibiotiics Will advance diet to thickened liquids since diarrhea stopped (3) DIONISIO (acute kidney injury) Assessment/Plan: Minimal improvement in creat daily. Continue hydration (4) Pancytopenia Assessment/Plan: WBC has slight improvement, H/H stable, plts continue to drop Will continue to follow labs and transfuse if needed (6) Diarrhea Qualifiers: Diarrhea type: unspecified type Qualified Code(s): R19.7 - Diarrhea, unspecified Assessment/Plan: Resolved (7) Hypernatremia Assessment/Plan: Hypernatremia and tachycardia suggest volume depletion and need for free water Will change iv fluids to D5 1/2 NS with KCl Also allow po fluids, thickened due to swallow eval abnormal several days ago (8) Altered mental status Qualifiers: Altered mental status type: disorientation Qualified Code(s): R41.0 - Disorientation, unspecified Assessment/Plan: AMS and dysarthria CVA has been R/O yesterday and on 06/22. Likely due to sepsis from pancreatitis Continue to monitor (9) Elevated LFTs Assessment/Plan: Likely due to pancreatitis or shock liver (pt was shocky at admisssion) Continue to monitor labs - Current Meds Current Meds: Current Medications Generic Name Dose Route Start Last Admin Trade Name Freq PRN Reason Stop Dose Admin Famotidine 50 mls @ 100 mls/hr 06/21/17 21:00 06/24/17 10:04 Pepcid 20 Mg/50 Ml IV Infused BID MICHELLE Infusion Cefepime HCl 1 gm/ Sodium 100 mls @ 200 mls/hr 06/22/17 19:00 06/23/17 19:47 Chloride IV Infused Q24H MICHELLE Infusion Metronidazole 500 mg in 100 mls @ 100 mls/hr 06/22/17 20:00 06/24/17 15:13 Flagyl 500 Mg/100 Ml IV 100 mls/hr Q6H MICHELLE Administration Heparin Sodium/Sodium Chloride 25,000 unit in 500 mls @ 16.44 mls/hr 06/23/17 19:00 06/23/17 19:09 Heparin/0.45% Nacl IV 12 unit/kg/hr .[id number] MICHELLE 16.44 mls/hr Protocol Administration 12 UNIT/KG/HR Potassium Chloride/Dextrose/Sod Cl 1,000 mls @ 100 mls/hr 06/24/17 10:30 07/29 11:54 D5.45ns W/20 Meq Kcl IV 100 mls/hr .Q10H MICHELLE Administration Mineral Oil 1 applic 06/22/17 13:25 06/22/17 17:23 Cavilon TOP 1 applic PRN PRN Administration Skin Care Nystatin 1 applic 06/22/17 12:00 06/24/17 09:35 Mycostatin Cream TOP 1 applic BID MICHELLE Administration Sodium Chloride 10 ml 06/21/17 14:00 06/24/17 06:25 Normal Saline Flush 0.9% IVP 10 ml Q8HR MICHELLE Administration Sodium Chloride 10 ml 06/21/17 12:06 06/23/17 18:59 Normal Saline Flush 0.9% IVP 10 ml PRN PRN Administration NEEDED PER PROVIDER ORDERS - Lab Result Fish Bone Diagrams: 06/24/17 04:50 06/24/17 04:50 - Additional Planning My Orders: My Active Orders 06/23/17 18:32 Miscellaenous Nursing Order [RC] QSHIFT 06/23/17 19:00 Heparin 25,000 Units/500 ml Ns [Heparin/0.45% NaCl] 25,000 unit in 500 ml IV 12 unit/kg/hr 06/24/17 10:30 D5.45ns W/20 Meq KCl 1,000 ml IV 100 mls/hr 06/24/17 Dinner Clear Liquid Diet [DIET] 06/25/17 05:00 AMYLASE [CHEM] DAILYLAB CBC - COMP BLD CT W/AUTO DIFF [HEME] DAILYLAB CMP [COMPREHENSIVE METABOLIC PANEL] [CHEM] DAILYLAB D-DIMER [COAG] DAILYLAB FIBRINOGEN [COAG] DAILYLAB LIPASE [CHEM] DAILYLAB PT WITH INR [COAG] DAILYLAB PTT [PARTIAL THROMBOPLASTIN TIME] [COAG] DAILYLAB 06/25/17 09:00 Chest 1 View [XR] Routine Subjective - Subjective Nursing Reports: Other (Follows commands Less verbal Diarrhea stopped Wants to drink liquids) Objective Vital Signs: Vital Signs - 24 hr 06/23/17 06/23/17 06/23/17 17:00 18:00 18:50 Temperature 36.7 C 36.6 C Heart Rate 112 H Heart Rate [ 110 H 102 H Monitoring electrodes] Respiratory 31 H 28 H 28 H Rate Blood Pressure 158/50 H 111/46 L [Left Brachial artery] O2 Saturation 91 L 91 L 06/23/17 06/23/17 06/23/17 19:00 20:00 20:12 Temperature 36.6 C 37 C Heart Rate Heart Rate [ 112 H 108 H Monitoring electrodes] Respiratory 29 H 31 H Rate Blood Pressure 123/48 L 111/76 [Left Brachial artery] O2 Saturation 93 94 06/23/17 06/23/17 06/23/17 21:00 22:00 23:00 Temperature 37 C Heart Rate Heart Rate [ 110 H 102 H 102 H Monitoring electrodes] Respiratory 32 H 29 H 29 H Rate Blood Pressure 109/86 H 108/61 117/42 L [Left Brachial artery] O2 Saturation 94 94 95 06/24/17 06/24/17 06/24/17 00:00 01:00 02:00 Temperature 36.6 C Heart Rate Heart Rate [ 97 96 104 H Monitoring electrodes] Respiratory 27 H 27 H 33 H Rate Blood Pressure 89/63 L 115/44 L 129/64 [Left Brachial artery] O2 Saturation 93 95 96 06/24/17 06/24/17 06/24/17 03:00 04:00 05:00 Temperature 36.9 C Heart Rate Heart Rate [ 104 H 101 H 102 H Monitoring electrodes] Respiratory 28 H 33 H 21 Rate Blood Pressure 123/66 127/68 136/56 H [Left Brachial artery] O2 Saturation 93 97 94 06/24/17 06/24/17 06/24/17 06:00 07:00 08:00 Temperature 36.7 C Heart Rate Heart Rate [ 103 H 105 H 105 H Monitoring electrodes] Respiratory 30 H 29 H 30 H Rate Blood Pressure 142/60 H 129/62 137/48 H [Left Brachial artery] O2 Saturation 92 93 92 06/24/17 06/24/17 06/24/17 09:00 09:30 10:00 Temperature Heart Rate 112 H Heart Rate [ 108 H 111 H Monitoring electrodes] Respiratory 28 H 29 H 26 H Rate Blood Pressure 117/68 142/58 H [Left Brachial artery] O2 Saturation 95 94 06/24/17 06/24/17 06/24/17 11:00 13:00 14:00 Temperature Heart Rate Heart Rate [ 110 H 97 90 Monitoring electrodes] Respiratory 33 H 27 H 30 H Rate Blood Pressure 149/88 H 144/48 H 126/105 H [Left Brachial artery] O2 Saturation 92 93 93 06/24/17 14:15 Temperature Heart Rate Heart Rate [ Monitoring electrodes] Respiratory Rate Blood Pressure 135/54 H [Left Brachial artery] O2 Saturation Oxygen O2 Source Nasal cannula I&O (Last 24 Hrs): Intake and Output Totals x24h 06/22/17 06/23/17 06/24/17 23:59 23:59 23:59 Intake Total 4974.005 1913.333 1600 Output Total 2064 1820 1274 Balance -376.416 905.333 326 General: Other (Somnolent but awakens and eyes follow Follows commands) HEENT: Other (Dry oral mucosa Jaclyn bitten Mouth breathing and O2 n.c. is in front of mouth) Neck: No JVD Neuro: Disoriented, Speech Slurred Cardiovascular: Regular rate Respiratory: Breath sounds nml Abdomen: Soft Extremities: Other (R 1+ edema) - Results Results: Laboratory Results WBC 3.4 x10^3/uL (4.8-10.8) L 06/24/17 04:50 RBC 4.20 10^6/uL (4.20-5.40) 06/24/17 04:50 Hgb 11.2 g/dL (12.0-16.0) L 06/24/17 04:50 Hct 33.2 % (37.0-47.0) L 06/24/17 04:50 MCV 79.0 fL (81.0-99.0) L 06/24/17 04:50 MCH 26.6 pg (27.0-31.0) L 06/24/17 04:50 MCHC 33.7 g/dL (32.0-36.0) 06/24/17 04:50 RDW 15.6 % (12.0-15.0) H 06/24/17 04:50 Plt Count 75 10^3/uL (130-450) L 06/24/17 04:50 MPV 9.2 fL (7.9-10.8) 06/24/17 04:50 Neut # 2.7 10^3/uL (1.5-6.6) 06/24/17 04:50 Lymph # 0.5 10^3/uL (1.5-3.5) L 06/24/17 04:50 [place] # 0.1 10^3/uL (0.0-1.0) 06/24/17 04:50 Eos # 0.0 10^3/uL (0.0-0.7) 06/24/17 04:50 Baso # 0.0 10^3/uL (0.0-0.1) 06/24/17 04:50 Absolute Nucleated RBC 0.00 x10^3/uL 06/24/17 04:50 Total Counted 100 06/23/17 05:09 Band Neuts % (Manual) 18 % (0-10) H 06/23/17 05:09 Nucleated RBC % 0.0 /100WBC 06/24/17 04:50 Neutrophils # (Manual) 1.7 10^3/uL (1.5-6.6) 06/23/17 05:09 Lymphocytes # (Manual) 0.5 10^3/uL (1.5-3.5) L 06/23/17 05:09 Monocytes # (Manual) 0.1 10^3/uL (0.0-1.0) 06/23/17 05:09 Differential Comment MANUAL DIFFERENTIAL 06/23/17 05:09 Manual Slide Review Indicated 06/21/17 09:20 Platelet Estimate DECREASED (<130,000) (NORMAL) 06/23/17 05:09 Platelet Morphology RARE GIANT PLATELETS (NORMAL) 06/21/17 09:20 RBC Morph Micro Appear NORMAL APPEARANCE (NORMAL) 06/23/17 05:09 PT 62.9 secs (9.9-12.6) H 06/24/17 04:50 INR 6.0 (0.8-1.2) H* 06/24/17 04:50 APTT 79.5 secs (24.9-33.3) H 06/24/17 04:50 Fibrinogen 176 mg/dL (220-496) L 06/24/17 04:50 D-Dimer > 1050.0 ng/mL (200.0-255.0) H 06/24/17 04:50 VBG pH 7.300 (7.31-7.41) L 06/21/17 23:25 VBG pCO2 32.4 mmHg (41-51) L 06/21/17 23:25 VBG pO2 150.7 mmHg (25-47) H 06/21/17 23:25 VBG HCO3 15.6 mmol/L (23-28) L 06/21/17 23:25 VBG Total CO2 16.6 mmol/L (24-29) L 06/21/17 23:25 VBG O2 Saturation 98.7 % (60-80) H 06/21/17 23:25 VBG Base Excess -9.7 mmol/L (-2 - +2) L 06/21/17 23:25 Sodium 146 mmol/L (135-145) H 06/24/17 04:50 Potassium 3.4 mmol/L (3.5-5.0) L 06/24/17 04:50 Chloride 118 mmol/L (101-111) H 06/24/17 04:50 Carbon Dioxide 18 mmol/L (21-32) L 06/24/17 04:50 Anion Gap 10.0 (6-13) 06/24/17 04:50 BUN 39 mg/dL (6-20) H 06/24/17 04:50 Creatinine 2.5 mg/dL (0.4-1.0) H 06/24/17 04:50 Estimated GFR (MDRD) 19 (>89) L 06/24/17 04:50 Glucose 119 mg/dL (70-100) H 06/24/17 04:50 Lactic Acid 1.1 mmol/L (0.5-2.2) 06/23/17 05:09 Calcium 7.9 mg/dL (8.5-10.3) L 06/24/17 04:50 Phosphorus 3.1 mg/dL (2.5-4.6) 06/21/17 19:23 Magnesium 1.9 mg/dL (1.7-2.8) 06/23/17 05:09 Total Bilirubin 2.9 mg/dL (0.2-1.0) H 06/24/17 04:50 AST 834 IU/L (10-42) H 06/24/17 04:50 ALT 321 IU/L (10-60) H 06/24/17 04:50 Alkaline Phosphatase 143 IU/L (42-121) H 06/24/17 04:50 Troponin I 0.29 ng/mL (<0.49) 06/21/17 12:35 Total Protein 4.7 g/dL (6.7-8.2) L 06/24/17 04:50 Albumin 2.1 g/dL (3.2-5.5) L 06/24/17 04:50 Globulin 2.6 g/dL (2.1-4.2) 06/24/17 04:50 Albumin/Globulin Ratio 0.8 (1.0-2.2) L 06/24/17 04:50 Triglycerides 272 mg/dL (-149) H 06/24/17 04:50 Cholesterol 109 mg/dL (-199) 06/24/17 04:50 LDL Cholesterol, Calc Not Reportable 06/24/17 04:50 VLDL Cholesterol 54 mg/dL 06/24/17 04:50 HDL Cholesterol < 5 mg/dL (60-) L 06/24/17 04:50 LDL/HDL Ratio Not Reportable 06/24/17 04:50 Cholesterol/HDL Ratio Not Reportable 06/24/17 04:50 Amylase 242 U/L (28-100) H 06/24/17 04:50 Lipase 65 U/L (22-51) H 06/24/17 04:50 Urine Color YELLOW 06/21/17 09:40 Urine Clarity CLOUDY (CLEAR) 06/21/17 09:40 Urine pH 6.0 PH (5.0-7.5) 06/21/17 09:40 Ur Specific [place] 1.010 (1.002-1.030) 06/21/17 09:40 Urine Protein 30 mg/dL (NEGATIVE) H 06/21/17 09:40 Urine Glucose (UA) NEGATIVE mg/dL (NEGATIVE) 06/21/17 09:40 Urine Ketones NEGATIVE mg/dL (NEGATIVE) 06/21/17 09:40 Urine Occult Blood LARGE (NEGATIVE) H 06/21/17 09:40 Urine Nitrite NEGATIVE (NEGATIVE) 06/21/17 09:40 Urine Bilirubin NEGATIVE (NEGATIVE) 06/21/17 09:40 Urine Urobilinogen 0.2 (NORMAL) E.U./dL (NORMAL) 06/21/17 09:40 Ur Leukocyte Esterase NEGATIVE (NEGATIVE) 06/21/17 09:40 Urine RBC 6-10 /HPF (0-5) H 06/21/17 09:40 Urine WBC 0-3 /HPF (0-5) 06/21/17 09:40 Ur Squamous Epith Cells FEW Squamous (<= Few) 06/21/17 09:40 Amorphous Sediment Marked /LPF 06/21/17 09:40 Urine Bacteria Few /HPF (None Seen) 06/21/17 09:40 Ur Microscopic Review INDICATED 06/21/17 09:40 Urine Culture Comments NOT INDICATED 06/21/17 09:40 Influenza A (Rapid) Negative (Negative) 06/21/17 11:30 Influenza B (Rapid) Negative (Negative) 06/21/17 11:30 Influenza Types A,B Ag - 06/21/17 11:30 Blood Type A POSITIVE 06/21/17 12:35 Blood Type Recheck A POSITIVE 06/21/17 09:20 Antibody Screen NEGATIVE 06/21/17 12:35 - Procedures Procedures: Procedures COLONOSCOPY (09/24/14) INTRAOPER CHOLANGIOGRAM (09/05/13) LAPAROSCOPIC CHOLECYSTECTOMY (09/05/13)
[2017-06-24 18:15] LABS: BILIRUBIN,URINE NEGATIVE (NEGATIVE)
[2017-06-24 18:24] LABS: UR CULTURE IF IND INDICATED
[2017-06-24] MEDS: SODIUM CHLORIDE FLUSH 0.9% 10 ML SYRINGE IVP PRN (19:35)
[2017-06-24] MEDS: CEFEPIME 1 GM in SODIUM CHLORIDE 0.9% MINIBAG 100 ML IV SCH (19:38)
[2017-06-24 20:10] LABS: CREATININE 2.5 mg/dL (0.4-1.0); MAGNESIUM 1.9 mg/dL (1.7-2.8); POTASSIUM 3.4 mmol/L (3.5-5.0)
[2017-06-24] MEDS: MIN OIL/DIMETHICON/COCONUT OIL 92 GM TUBE TOP PRN (20:24)
[2017-06-24] MEDS ORDERED: METOPROLOL 5 MG/5 ML VIAL IVP ONE (20:46)
[2017-06-24] MEDS ORDERED: ALBUMIN 25% 12.5 GM/50 ML VIAL IV STA (21:03)
[2017-06-24] MEDS: DEXTROSE 5% 1,000 ML IV SCH (21:41)
[2017-06-24] MEDS ORDERED: POTASSIUM CHLOR 10 MEQ/100 ML 10 MEQ/100 ML BAG IV SCH (22:00)
[2017-06-25] MEDS ORDERED: DIGOXIN 500 MCG/2 ML AMP IVP SCH (01:34)
[2017-06-25] MEDS ORDERED: METOPROLOL 5 MG/5 ML VIAL IVP ONE (01:47)
[2017-06-25] MEDS ORDERED: DIGOXIN 500 MCG/2 ML AMP IVP ONE (01:47)
[2017-06-25] MEDS: HEPARIN 25,000 UNITS/500 ML NS 25,000 UNIT/500 ML BAG IV SCH (01:49)
[2017-06-25] MEDS: METOPROLOL 5 MG/5 ML VIAL IVP SCH ×2 (01:56→06:08)
[2017-06-25] MEDS: metroNIDAZOLE 500 MG/100 ML 500 MG/100 ML BAG IV SCH ×2 (02:04→08:01)
[2017-06-25] MEDS: MIN OIL/DIMETHICON/COCONUT OIL 92 GM TUBE TOP PRN (05:11)
[2017-06-25] MEDS: SODIUM CHLORIDE FLUSH 0.9% 10 ML SYRINGE IVP SCH (05:59)
[2017-06-25 06:03] LABS: BASOPHILS % (AUTO) 0.1 %; HCT - HEMATOCRIT 35.8 % (37.0-47.0); HGB - HEMOGLOBIN 11.9 g/dL (12.0-16.0); LYMPHOCYTES # (AUTO) 1.5 10^3/uL (1.5-3.5); LYMPHOCYTES % (AUTO) 21.9 %; MEAN CORPUSCULAR HEMOGLOBIN 26.5 pg (27.0-31.0); MEAN CORPUSCULAR HGB CONC 33.2 g/dL (32.0-36.0); MEAN CORPUSCULAR VOLUME 79.8 fL (81.0-99.0); MEAN PLATELET VOLUME 9.6 fL (7.9-10.8); MONOCYTES # (AUTO) 0.5 10^3/uL (0.0-1.0); MONOCYTES % (AUTO) 7.3 %; NEUTROPHILS # (AUTO) 4.8 10^3/uL (1.5-6.6); NEUTROPHILS % (AUTO) 70.7 %; NUCLEATED RED BLOOD CELLS AUTO 0.1 /100WBC; RED BLOOD COUNT 4.49 10^6/uL (4.20-5.40); RED CELL DISTRIBUTION WIDTH 16.4 % (12.0-15.0); UNCORRECTED WHITE BLOOD COUNT 6.8 x10^3/uL; WHITE BLOOD COUNT 6.8 x10^3/uL (4.8-10.8)
[2017-06-25 06:16] LABS: FIBRINOGEN 147 mg/dL (220-496)
[2017-06-25 06:25] LABS: BILIRUBIN,TOTAL 3.3 mg/dL (0.2-1.0); CALCIUM 8.1 mg/dL (8.5-10.3); CREATININE 2.4 mg/dL (0.4-1.0); POTASSIUM 3.6 mmol/L (3.5-5.0)
--- NOTE | 2017-06-25 06:53 | XRAY Preliminary Report ---
Exam: XR CHEST 1 VIEW IMPRESSION: Small pleural effusions with adjacent mild atelectasis again noted, stable. No new opacit yPeña RADIEvelio SITE ID: [id number]
--- NOTE | 2017-06-25 06:55 | XRAY Report ---
EXAM: CHEST RADIOGRAPHY EXAM DATE: 06/25/2017 06:37 AM. CLINICAL HISTORY: Shortness of breath, follow-up study COMPARISON: 06/22/2017 x-ray and CT abdomen. TECHNIQUE: 1 view. FINDINGS: Lungs/Pleura: Small pleural effusions with adjacent mild atelectasis again noted. No new opacity. No gross pneumothorax. Mediastinum: Within exam limitations, the cardiomediastinal contour is normal. Other: None. IMPRESSION: Small pleural effusions with adjacent mild atelectasis again noted, stable. No new opacit bautista SILVESTRE Referring Provider Line: [phone] SITE ID: [id number]
[2017-06-25 06:57] LABS: D-DIMER > 1050.0 ng/mL (200.0-255.0)
[2017-06-25 06:59] LABS: INR > 10.0 (0.8-1.2)
[2017-06-25 07:00] LABS: PARTIAL THROMBOPLASTIN TIME > 240.0 secs (24.9-33.3)
[2017-06-25 07:17] LABS: MAGNESIUM 1.9 mg/dL (1.7-2.8); PHOSPHORUS 2.7 mg/dL (2.5-4.6)
[2017-06-25] MEDS: NYSTATIN CREAM 15 GM TUBE TOP SCH (08:01)
[2017-06-25 08:14] LABS: ABG BASE EXCESS -8.1 mmol/L (-2.0-3.0); ABG EXPIRATORY POS AIRWAY P 5 cmH2O; ABG HCO3 16.9 mmol/L (22.0-26.0); ABG INSPIRATORY POS AIRWAY P 12 cmH2O; ABG O2 DEVICE BiPAP; ABG OXYGEN SATURATION 95 % (94-98); ABG PCO2 33 mmHg (34-45); ABG PH 7.33 (7.35-7.45); ABG PO2 77 mmHg (80-100); ABG RESPIRATORY RATE 22 b/min; ABG SITE OF DRAW LEFT BRACHIAL
[2017-06-25] MEDS: POTASSIUM CHLOR 10 MEQ/100 ML 10 MEQ/100 ML BAG IV SCH ×2 (08:33→08:34)
[2017-06-25] MEDS: FAMOTIDINE 20 MG/50 ML 50 ML IV SCH (09:13)
--- NOTE | 2017-06-25 11:51 | Discharge Plan ---
Discharge Plan Disposition: 02 Transfer Acute Care Hosp Condition: Critical No Smoking: If you smoke, Please STOP! Call for help. Follow-up with: Abdiaziz Canchola DO [Primary Care Provider] -
[2017-06-25] MEDS: DEXTROSE 5% 1,000 ML IV SCH (13:36)
[2017-06-25 14:17] VITALS: BP 144/55
--- NOTE | 2017-06-25 15:16 | DISCHARGE SUMMARY ---
DATE OF ADMISSION: 06/21/2017 DATE OF DISCHARGE: 06/25/2017 HPI: This is a 76-year-old white female with remote history of right-sided DVT with recurrence 2 months ago for which she has been on Coumadin. Approximately 7 -10 days ago, she started to develop altered mental status with lethargy and was seen for this complaint 3 separate times in the emergency room at [facility], where she was felt to be volume depleted, each time she received hydration, had improvement in her mental status and discharged. During these visits, she was felt to have bronchitis or pneumonia and was started on oral antibiotics. On presentation here on 06/21/2017, there had been several days of diarrhea. She was once again obtunded and was found to have a blood pressure of 80, rapid atrial fibrillation at rates of 160s, and she was admitted for management of altered mental status, hypotension, and tachycardia. HOSPITAL COURSE AND DISCHARGE DIAGNOSES 1. Hypotension. With volume replacement, the patient's blood pressure improved and she was able to give a history, and had no complaints of shortness of breath , chest pain, abdominal pain, leg pain. She described that she was on her Coumadin and oral antibiotic, and confirmed that she had several small episodes of diarrhea. Throughout this entire admission her blood pressure has been stable with IV fluid management. Because of worsening mental status subsequently , she has been unable to hydrate orally or take significant calories. On the day before discharge, she once again went into rapid atrial fibrillation at rates in the 150s. With this, she received IV metoprolol 5 mg and again had hypotension, which also resolved with fluid boluses and at the time of discharge , her blood pressure was 105/50 and a pulse of 74 in sinus rhythm, and this was on D5 normal saline at a rate of 70. 2. Paroxysmal atrial fibrillation. On presentation, she was in AFib with RVR, which converted after rehydration, and on the day before transfer, she had a similar course. Throughout the admission she was in sinus rhythm with rates in the 70s to 120s. She was not on her Coumadin or antiplatelet agent or oral anticoagulant because of the hematologic problem (see below). 3. Disseminated intravascular coagulation. On presentation, the patient was noted to have pancytopenia with white blood count 2.1, hemoglobin 10.2, platelet count 95. The smear showed rare giant platelets and 2+ anisocytosis. As her course progressed, the patient was felt to be in DIC with dropping platelets from 95, 91, 79, 75, and 77 at the time of transfer, as well as abnormal bleeding parameters with PT 21.2 on admission, the following day 34, 62 , 116 on the day of transfer. Her PTT was 36 on the day after admission, increased to 79.5, then greater than 240 on the day of transfer. Fibrinogen was normal on 06/22/2017 at 272, then dropped to 176, and 147 on the day of transfer. She had dimers that were elevated on 06/22/2017 at greater than 1050, which remained at this elevated level throughout the course. The patient was started on heparin infusion at a rate of 12,000 units per hour empirically. The patient did not need to receive platelet transfusion or FFP as there were no signs of overt bleeding. She did start to ooze blood from her peripheral IV sticks on the day of discharge. 4. Altered mental status. The day after admission, the patient was noted to have garbled speech, descriptions of objects that were not in the room, and lethargy. She underwent a CT scan of the head that did not show any acute bleed or evidence of midline shift or other mass effect. The following day she had worsening of her mental status with more aphasic speech and right arm weakness, in particular, and once again underwent imaging of the brain using MRI, which once again showed no evidence of bleeding, mass effect or acute infarction. On the day of discharge, she was somnolent, minimally arousable, but did open her eyes to her name and was able to follow with her eyes, but too weak to perform any mobility to commands. Because of this worsening mental status, along with the above diagnosis of DIC, she was transferred to a hospital with higher level of care for management of multiorgan pathology. 5. Acute pancreatitis. Her admission amylase was 272 and at the day of discharge had been up as high as 313. Lipase started at 70 and increased to 89. Liver function tests were also abnormal at presentation. Her AST was 326 and worsened to as high as 854 and on the day of transfer was 798, and ALT was elevated at 147 on admission and nhi to 334, was 302 at the day of discharge. The patient did undergo imaging of her abdomen, which showed streaking of the pancreas, felt to be consistent with acute pancreatitis, and no other organ pathology was described. Patient was maintained on empiric antibiotics using cefepime 1 gram IV daily and Flagyl 500 mg IV q.6h. She had negative blood cultures throughout this course, negative sputum and urine cultures. 6. Shortness of breath with desaturation. The patient required supplemental oxygen using nasal cannula at 2 liters and 4 liters, and then intermittently required BiPAP with 4 liters of oxygen and 12 cm of pressure to maintain saturations of 98% to 100%. Her respiratory rate was elevated during the entire course at rates in the 20s to 30s. The patient had blood gases done during this admission, the most recent was the day of discharge/transfer, which showed a pH of 7.32, pCO2 of 33, pO2 of 77, and bicarbonate of 16.9, consistent with metabolic acidosis. The patient's lactic acid level, however, during the entire course was normal at 1.4 at admission and 1.0 at the time of transfer. Her anion gap was also normal throughout the course at 10, and was 7 at the time of transfer. The patient had CPK levels evaluated, which were elevated at 1041 on 06/24/2017, and 937 at the time of transfer, suspicious of rhabdomyolysis as her troponin levels were normal throughout the course. The patient also underwent an echocardiogram while here, showing normal LV size and systolic function, with an LVEF of 70% and no regional wall motion abnormalities. The right heart was also normal in size and function. There were no significant valvular functional abnormalities or structural abnormalities found. MEDICATIONS AT TIME OF TRANSFER 1. Cefepime 1 gram IV daily. 2. D5 NS at 70 mL an hour. 3. Pepcid 20 mg IV b.i.d. for gastric ulcer prophylaxis. 4. Heparin IV at 12,000 units an hour. 5. Xopenex inhaler p.r.n. wheezing. 6. Metronidazole 500 mg IV q.6h. 7. Mineral oil topically p.r.n. skin care. 8. Nystatin cream topically when she initially had diarrhea. 9. Compazine p.r.n. CONDITION AT DISCHARGE: Critical. PHYSICAL EXAMINATION VITAL SIGNS: Blood pressure 105/50, pulse of 74, respiratory rate 25, oxygen saturation 100% on BiPAP with a temperature that was afebrile. HEENT: Showed dry oral mucosa. NECK: Showed no JVD. CHEST: Normal breath sounds diffusely. CARDIOVASCULAR: Heart sounds are distant. No audible murmurs. ABDOMEN: Soft. No rebound or guarding. EXTREMITIES: Showed 1+ right-sided leg edema to the knee, left side appeared normal. SKIN: No evidence of rash or redness. NEUROLOGICAL: She was obtunded, arouses to her name, but falls back asleep, and the day before, she had dysarthric speech and right arm weakness. LABORATORY STUDIES AND IMAGING: Reviewed and as above. FOLLOWUP: This will be determined after in-hospital care at [facility]. CODE STATUS: FULL CODE. TIME SPENT ON DISCHARGE: 60 minutes. JOB #: [id number] EXT JOB #:[id number] ALBARO
[2017-06-27 09:41] LABS: GLOM BASEMENT MEMBRANE AB IGG <1.0 AI (<1.0)
[2017-06-27 12:36] LABS: COMPLEMENT COMPONENT C3C 84 mg/dL (90-180); COMPLEMENT COMPONENT C4C 61 mg/dL (16-47)
[2017-06-27 14:54] LABS: ANA SCREEN NEGATIVE (NEGATIVE)
[2017-06-27 23:41] LABS: ALPHA 1 GLOBULIN 0.4 g/dL (0.2-0.3); ALPHA 2 GLOBULIN 0.5 g/dL (0.5-0.9); BETA 1 GLOBULIN 0.2 g/dL (0.4-0.6); BETA 2 GLOBULIN 0.5 g/dL (0.2-0.5); GAMMA GLOBULIN 0.5 g/dL (0.8-1.7)
== END 2017-06-25 14:05 | disposition short-term general hospital (02) | DRG 871 ==
LOC: EDUNIT# → ED 08:13 → ICU 12:06
PROVIDERS: ADMIT Internal Medicine; ATTEND Internal Medicine
DX: A41.9 Sepsis, unspecified organism (principal); R50.9 Fever, unspecified; D65 Disseminated intravascular coagulation [defibrination syndrome]; N28.9 Disorder of kidney and ureter, unspecified; K85.90 Acute pancreatitis without necrosis or infection, unspecified; J18.9 Pneumonia, unspecified organism; I48.91 Unspecified atrial fibrillation; R19.7 Diarrhea, unspecified; R15.9 Full incontinence of feces; E78.00 Pure hypercholesterolemia, unspecified; I82.409 Acute embolism and thrombosis of unspecified deep veins of unspecified lower extremity; K58.0 Irritable bowel syndrome with diarrhea; N17.9 Acute kidney failure, unspecified; D61.818 Other pancytopenia; K52.1 Toxic gastroenteritis and colitis; E87.2 Acidosis; M62.82 Rhabdomyolysis; E87.0 Hyperosmolality and hypernatremia; R65.20 Severe sepsis without septic shock; I95.9 Hypotension, unspecified; E87.6 Hypokalemia; E83.42 Hypomagnesemia; E86.0 Dehydration; I48.0 Paroxysmal atrial fibrillation; R06.02 Shortness of breath; K58.9 Irritable bowel syndrome, unspecified; T36.95XA Adverse effect of unspecified systemic antibiotic, initial encounter; R41.82 Altered mental status, unspecified; Z79.01 Long term (current) use of anticoagulants; Z79.899 Other long term (current) drug therapy; Z91.81 History of falling; Z85.44 Personal history of malignant neoplasm of other female genital organs; Z92.21 Personal history of antineoplastic chemotherapy; Z92.3 Personal history of irradiation; Z90.49 Acquired absence of other specified parts of digestive tract
CPT/HCPCS: 36415; 36600; 51703; 70450; 70551; 71010; 74150; 78582; 80048; 80053; 80061; 80074; 81001; 81003; 82150; 82550; 82570; 82803; 83520; 83605; 83690; 83735; 84100; 84132; 84155; 84156; 84165; 84166; 84484; 85025; 85379; 85384; 85610; 85651; 85730; 86021; 86038; 86160; 86335; 86665; 86803; 86850; 86900; 86901; 87040; 87045; 87046; 87086; 87150; 87275; 87276; 87389; 87449; 87493; 87798; 93005; 93306; 94660; 96361; 96365; 96366; 99285